=== PATIENT | male | born 1950 | race African-American/Black ===

== ENCOUNTER 2016-08-28 06:57 | Outpatient (CLI) | payer MEDICARE, MEDICAID ==
[~2016-08-28] VITALS: Ht 162.6 cm; Wt 72.8 kg
[~2016-08-28 06:57] MED LIST: CARB100T PO; CARB200C7 PO; CRB200T PO; DCS100C PO; GLYC1TAB11 PO; LOSA50TA36 PO; RANI150T90 PO; TMSL.4C PO; VLS80C PO
--- OUTSIDE RECORDS SUMMARY | 2016-08-28 07:00 | XMS REPORT | Continuity of Care Document ---
Author Author [facility] Organization [facility] Address Unknown Phone Unavailable Care Team Providers Care Drum Printer Name Role Phone CiprianoTalia PCP [phone] Source Comments Some departments are not documenting in the electronic medical record. If you do not see the information that you expected, contact Release of Information in the Health Information Management department at [phone] for further assistance in locating additional records.[facility] Active Allergies and Adverse Reactions Allergen Noted Date Severity Reactions Comments Banana 06/20/2016 High SEIZURES Per his sister Arlyn pt is allergic to bananas which cause convulsions at night Current Medications Prescription Sig. Disp. Refills Start End Date Status Date losartan (COZAAR) 50 mg Take 50 mg by mouth Active tablet daily. carBAMazepine (TEGRETOL) Take 2 tablets by mouth Active 200 mg tablet in the morning and 1 tablet in the evening docusate (COLACE) 100 mg Take 200 mg by mouth at Active capsule bedtime daily. clarithromycin (BIAXIN) Take 1 Tab by mouth twice 25 Tab 0 06/25/20 Active 500 mg tablet daily. [address] Take 1 Tab by mouth twice 60 Tab 1 06/25/20 Active (PROTONIX) 40 mg tablet daily. 16 amoxicillin (AMOXIL) 500 Take 2 Caps by mouth 50 Cap 0 06/25/20 Active mg capsule twice daily. 16 Active Problems Problem Noted Date H pylori ulcer 06/25/2016 Duodenal ulcer 06/20/2016 Most Recent Encounters Date Type Specialty Providers Description 09/12/2016 [facility] Gilmar Kapadia MD Gastric ulcer Encounter 07/04/2016 Telephone Gastroenterology Keena Ashley Appointment Request - EGD - [facility] 07/03/2016 Prep for Case Gastroenterology Gilmar Kapadia MD 07/03/2016 Telephone Gastroenterology Gilmar Kapadia MD Other - Repeat EGD 07/01/2016 Surgery Endoscopy, Physician Canceled ESOPHAGOGASTRODUODENOSCOP Y 07/01/2016 Hospital Endoscopy, Physician Gastric ulcer Encounter 06/24/2016 Prep for Case Rajan Bauer MD 06/20/2016 Hospital Radiology Wilfredo Stinson MD Encounter 06/20/2016 [facility] Chari Coelho MD Duodenal ulcer - Encounter 06/25/2016 06/20/2016 Endo [facility] General Internal Medicine Chari Coelho MD 06/20/2016 Anesthesia Costa Dela Cruz MD Event 06/20/2016 Surgery Gilmar Kapadia MD ESOPHAGOGASTRODUODENOSCOP Y Social History Tobacco Use Types Packs/Day Years Used Date Unknown If Ever Smoked Last Filed Vital Signs Vital Sign Reading Time Taken Blood Pressure 111/65 06/25/2016 10:54 AM CDT Pulse 100 06/25/2016 10:54 AM CDT Temperature 36.8 C (98.2 F) 06/25/2016 10:54 AM CDT Respiratory Rate - - Height - - Weight 77.384 kg (170 lb 9.6 oz) 06/25/2016 3:51 AM CDT Body Mass Index - - Oxygen Saturation 96% 06/25/2016 10:54 AM CDT Plan of Care Date Type Specialty Providers Description 09/12/2016 Surgery Gilmar Kapadia MD ESOPHAGOGASTRODUODENOSCOP [address] [place] [address] [phone] (Fax) Health Maintenance Due Date Last Done Comments Hepatitis C Screening 1950 Physical (Comprehensive) 1955 Exam Pertussis Vaccine 1959 Tetanus Vaccine 1965 Colorectal Cancer 1998 Screening Shingles Vaccine 2008 Prevnar/Pneumovax (#1) 2013 Influenza Vaccine 04/24/2016 Procedures from Last 3 Months Procedure Name Priority Date/Time Associated Diagnosis Comments PROCEDURES-SCAN 06/27/2016 Results for this 7:40 AM CDT procedure are in the results section. PROCEDURES-SCAN 06/27/2016 Results for this 7:39 AM CDT procedure are in the results section. CONSULT IV THERAPY TEAM Routine 06/21/2016 3:49 AM CDT ESOPHAGOGASTRODUODENOSCOP 06/20/2016 Esophageal perforation Y 4:53 PM CDT Results from Last 3 Months PROCEDURES-SCAN (06/27/2016 7:40 AM) Narrative Ordered by an unspecified provider. PROCEDURES-SCAN (06/27/2016 7:39 AM) Narrative Ordered by an unspecified provider. COMPREHENSIVE METABOLIC PANEL (06/25/2016 3:54 AM)Only the most recent of 3 results within the time period is included. Component Value Range Sodium 135 (L) 137-147 MMOL/L Potassium 4.3 3.5-5.1 MMOL/L Chloride 104 98-110 MMOL/L Glucose 90 70-100 MG/DL Blood Urea Nitrogen 14 7-25 MG/DL Creatinine 0.88 0.4-1.24 MG/DL Calcium 8.7 8.5-10.6 MG/DL Total Protein 6.6 6.0-8.0 G/DL Total Bilirubin 0.2 (L) 0.3-1.2 MG/DL Albumin 3.0 (L) 3.5-5.0 G/DL Alk Phosphatase 64 25-110 U/L AST (SGOT) 18 7-40 U/L CO2 25 21-30 MMOL/L ALT (SGPT) 16 7-56 U/L Anion Gap 6 3-12 eGFR Non >60Comment: >60 mL/min The eGFR is not validated for use in drug dosing adjustments. Continue to use estimated creatinine clearance per dosing reference text. Please contact the Clinical Pharmacist for questions. eGFR >60Comment: >60 mL/min The eGFR is not validated for use in drug dosing adjustments. Continue to use estimated creatinine clearance per dosing reference text. Please contact the Clinical Pharmacist for questions. Specimen Blood CBC AND DIFF (06/25/2016 3:54 AM)Only the most recent of 6 results within the time period is included. Component Value Range White Blood Cells 9.1 4.5-11.0 K/UL RBC 3.20 (L) 4.4-5.5 M/UL Hemoglobin 9.7 (L) 13.5-16.5 GM/DL Hematocrit 29.2 (L) 40-50 % MCV 91.2 80-100 FL MCH 30.2 26-34 PG MCHC 33.2 32.0-36.0 G/DL RDW 13.2 11-15 % Platelet Count 390 150-400 K/UL MPV 8.2 7-11 FL Neutrophils 60 41-77 % Lymphocytes 29 24-44 % Monocytes 7 4-12 % Eosinophils 4 0-5 % Basophils 0 0-2 % Absolute Neutrophil Count 5.50 1.8-7.0 K/UL Absolute Lymph Count 2.60 1.0-4.8 K/UL Absolute Monocyte Count 0.60 0-0.80 K/UL Absolute Eosinophil Count 0.40 0-0.45 K/UL Absolute Basophil Count 0.00 0-0.20 K/UL Specimen Blood POC GLUCOSE (06/22/2016 5:38 AM) Component Value Range Glucose, POC 93 70-100 MG/DL BASIC METABOLIC PANEL (06/22/2016 3:52 AM)Only the most recent of 3 results within the time period is included. Component Value Range Sodium 131 (L) 137-147 MMOL/L Potassium 3.3 (L) 3.5-5.1 MMOL/L Chloride 103 98-110 MMOL/L CO2 22 21-30 MMOL/L Anion Gap 6 3-12 Glucose 524 (HH)Comment: 70-100 MG/DL Critical Value GLU: Called To: HALLEY Schmitt at: 05:29:52 by: ASR Read back by: HALLEY Schmitt Blood Urea Nitrogen 5 (L) 7-25 MG/DL Creatinine 0.98 0.4-1.24 MG/DL Calcium 8.0 (L) 8.5-10.6 MG/DL eGFR Non >60Comment: >60 mL/min The eGFR is not validated for use in drug dosing adjustments. Continue to use estimated creatinine clearance per dosing reference text. Please contact the Clinical Pharmacist for questions. eGFR >60Comment: >60 mL/min The eGFR is not validated for use in drug dosing adjustments. Continue to use estimated creatinine clearance per dosing reference text. Please contact the Clinical Pharmacist for questions. Specimen Blood H. PYLORI AG, FECES (06/21/2016 8:04 AM) Component Value Range H. Pylori Ag, Feces Positive Reference range: Negative [facility] Specimen Sweat - Feces EGD (06/20/2016 7:53 PM) Component Value Range Provation Report Patient Name: Antonio Carias Procedure Date: 06/20/2016 7:53 PM CSN: [id number] Date of : 1950 Gender: Male Attending Physician: Gilmar Kapadia MD Procedure: Upper GI endoscopy Indications: Ep igastric abdominal pain, Abnormal CT of the GI tract with concern for esophageal perforation Providers: Gilmar Kapadia MD (Doctor), Karlie Kelly MD (Fellow), Lashonda Olivares (Nurse), Iron Vargas Inker Machine (Inker Machine) Referring Physician: Chari Coelho Medications: Mo nitored Anesthesia Care Complications: No immediate complications. Procedure: Pre-Anesthesia Assessment: - Prior to the procedure, a History and Physical was performed, and patient medications and allergies were reviewed. The patient's tolerance of previous anesthesia was also reviewed. The risks and benefits of the procedure and the sedation options and risks were discussed with the patient. All questions were answered, and informed consent was obtained. Prior Anticoagulants: The patient has taken no previous anticoagulant or antiplatelet agents. ASA Grade Assessment: II - A patient with mild systemic disease. After reviewing the risks and benefits, the patient was deemed in satisfactory condition to undergo the procedure. After obtaining informed consent, the endoscope was passed under direct vision. Throughout the procedure, the patient's blood pressure, pulse, and oxygen saturations were monitored continuously. The Endoscope [id number] was introduced through the mouth, and advanced to the second part of duodenum. The Endoscope was introduced through the mouth, and advanced to the second part of duodenum. The upper GI endoscopy was accomplished without difficulty. The patient tolerated the procedure well. Findings: Esophagogastric landmarks were identified: the Z-line was found at 30 cm from the incisors. The esophageal lumen was tortuous A 10 cm hiatus hernia was present (diaphragmatic pinch at 40 cm and the GE junction at 30 cm). A 4 cm, deep, cratered ulcer without bleeding or high risk bleeding stigmata was seen at the diaphragmatic pinch of the hiatal hernia (40 cm) with heaping and edematous folds around the ulcer with concern for malignancy based on endoscopic appearance. Biopsies were taken with a cold forceps for histology. The exam of the stomach was otherwise normal. Many non-bleeding superficial duodenal ulcers with no stigmata of bleeding were found in the duodenal bulb and in the first part of the duodenum. Impression: - Esophagogastric landmarks identified. - A 4 cm, deep, cratered ulcer without bleeding or high risk bleeding stigmata was seen at the diaphragmatic pinch of the hiatal hernia (40 cm) with heaping and edematous folds around the ulcer. Biopsies were taken with a cold forceps for histology. - 10 cm hiatus hernia. - Multiple non-bleeding duodenal ulcers with no stigmata of bleeding. Estimated Blood Loss: Estimated blood loss: none. Recommendation: - Patient has a contact number available for emergencies. The signs and symptoms of potential delayed complications were discussed with the patient. Return to normal activities tomorrow. Written discharge instructions were provided to the patient. - Resume previous diet. - Continue present medications. - Await pathology results. Scope In: 8:12:28 PM Scope Out: 8:22:45 PM Total Procedure Duration Time 0 hours 10 minutes 17 seconds Procedure Code(s): --- Professional --- 78237, Esophagogastroduodenoscopy, flexible, transoral; with biopsy, single or multiple Diagnosis Code(s): --- Professional --- K44.9, Diaphragmatic hernia without obstruction or gangrene K26.9, Duodenal ulcer, unspecified as acute or chronic, without hemorrhage or perforation R10.13, Epigastric pain R93.3, Abnormal findings on diagnostic imaging of other parts of digestive tract CPT copyright 2015 [employer] [place] [employer]. All rights reserved. The codes documented in this report are preliminary and upon industrial plant custodian review may be revised to meet current compliance requirements. Attending Participation: I personally performed the entire procedure. Gilmar Kapadia MD 07/25/2016 11:36:42 AM The attending physician has electronically signed and finalized this document. MD Karlie Dsouza MD 06/20/2016 8:29:45 PM Number of Addenda: 0 Note Initiated On: 06/20/2016 7:[address] ABDOMEN W CONTRAST (06/20/2016 2:32 PM) Impressions CHEST: 1. Complex hiatal hernia with marked wall thickening of the hiatal sac with surrounding inflammation. There is a small collection containing air and oral contrast along the anterior hernia at the gastroesophageal junction with adjacent inflammation, which may represent a contained perforation or contrast within inflamed old.. There is no evidence of active extravasation of contrast. 2. Small bilateral pleural effusions and mild compressive atelectasis. ABDOMEN: 1.Trace abdominal ascites. Findings discussed with Dr. Larkin at 3:30 PM 06/20/2016. Approved by Mariusz Melendrez M.D. on 06/20/2016 3:58 PM By my electronic signature, I attest that I have personally reviewed the images for this examination and formulated the interpretations and opinions expressed in this report Finalized by Sharon Du M.D. on 06/20/2016 4:29 PM. Dictated by Mariusz Melendrez M.D. on 06/20/2016 3:[address] CHEST AND ABDOMEN Clinical Indication:Male, 65 years old. Uncontrolled vomiting with concern for esophageal perforation at outside institution. Technique: Multiple contiguous axial images were obtained through the chest and abdomen following the administration of IV contrast material. Post processing coronal and sagittal reconstruction images were made from the axial images. IV contrast: Isovue 370. Bowel contrast:Gastrografin Comparison: Esophagram performed earlier the same day, CT abdomen/pelvis June 19, 2016 CHEST FINDINGS: Lower neck: Unremarkable. Axilla, Mediastinum and Марина: No axillary, mediastinal or hilar adenopathy. Large complex hiatal hernia which contains oral contrast. Diffuse wall thickening of the hiatal sac. There is an anterior air and fluid collection at the level of the gastroesophageal junction that with surrounding inflammation ( series 2 image 43). Evaluation of the gastric wall dislocation is difficult. No martin extravasation of contrast. Significant surrounding fat stranding about the gastroesophageal junction, proximal stomach and hiatal sac. Heart and Great Vessels: Unremarkable. Airway, Lungs and Pleura: Small bilateral pleural effusions with mild compressive atelectasis. No pulmonary nodule or focal consolidation. Chest Wall and Osseous Structures: No destructive osseous lesion. ABDOMEN FINDINGS: Liver and Biliary system: Normal sized liver with a few scattered hypodense lesions which are too small to characterize. Spleen: Unremarkable. Adrenal Glands and Kidneys: Mild nonspecific thickening of the left adrenal gland. Otherwise, the adrenal glands and kidneys are unremarkable. Pancreas and Retroperitoneum: Unremarkable pancreas. No retroperitoneal adenopathy. Aorta and Major Vessels: Unremarkable. Bowel, Mesentery and Peritoneal space: Normal caliber visualized large and small bowel. Trace ascites. Abdominal wall and Osseous Structures: No destructive osseous lesion. Procedure Note Interface, Radiant Results - ThuJun 20, 2016 4:[address] CHEST AND ABDOMEN Clinical Indication: Male, 65 years old. Uncontrolled vomiting with concern for esophageal perforation at outside institution. Technique: Multiple contiguous axial images were obtained through the chest and abdomen following the administration of IV contrast material. Post processing coronal and sagittal reconstruction images were made from the axial images. IV contrast: Isovue 370. Bowel contrast: Gastrografin Comparison: Esophagram performed earlier the same day, CT abdomen/pelvis June 19, 2016 CHEST FINDINGS: Lower neck: Unremarkable. Axilla, Mediastinum and Марина: No axillary, mediastinal or hilar adenopathy. Large complex hiatal hernia which contains oral contrast. Diffuse wall thickening of the hiatal sac. There is an anterior air and fluid collection at the level of the gastroesophageal junction that with surrounding inflammation ( series 2 image 43). Evaluation of the gastric wall dislocation is difficult. No martin extravasation of contrast. Significant surrounding fat stranding about the gastroesophageal junction, proximal stomach and hiatal sac. Heart and Great Vessels: Unremarkable. Airway, Lungs and Pleura: Small bilateral pleural effusions with mild compressive atelectasis. No pulmonary nodule or focal consolidation. Chest Wall and Osseous Structures: No destructive osseous lesion. ABDOMEN FINDINGS: Liver and Biliary system: Normal sized liver with a few scattered hypodense lesions which are too small to characterize. Spleen: Unremarkable. Adrenal Glands and Kidneys: Mild nonspecific thickening of the left adrenal gland. Otherwise, the adrenal glands and kidneys are unremarkable. Pancreas and Retroperitoneum: Unremarkable pancreas. No retroperitoneal adenopathy. Aorta and Major Vessels: Unremarkable. Bowel, Mesentery and Peritoneal space: Normal caliber visualized large and small bowel. Trace ascites. Abdominal wall and Osseous Structures: No destructive osseous lesion. IMPRESSION CHEST: 1. Complex hiatal hernia with marked wall thickening of the hiatal sac with surrounding inflammation. There is a small collection containing air and oral contrast along the anterior hernia at the gastroesophageal junction with adjacent inflammation, which may represent a contained perforation or contrast within inflamed old.. There is no evidence of active extravasation of contrast. 2. Small bilateral pleural effusions and mild compressive atelectasis. ABDOMEN: 1. Trace abdominal ascites. Findings discussed with Dr. Larkin at 3:30 PM 06/20/2016. Approved by Mariusz Melendrez M.D. on 06/20/2016 3:58 PM By my electronic signature, I attest that I have personally reviewed the images for this examination and formulated the interpretations and opinions expressed in this report Finalized by Sharon Du M.D. on 06/20/2016 4:29 PM. Dictated by Mariusz Melendrez M.D. on 06/20/2016 3:[address] CHEST W CONTRAST (06/20/2016 2:32 PM) Impressions CHEST: 1. Complex hiatal hernia with marked wall thickening of the hiatal sac with surrounding inflammation. There is a small collection containing air and oral contrast along the anterior hernia at the gastroesophageal junction with adjacent inflammation, which may represent a contained perforation or contrast within inflamed old.. There is no evidence of active extravasation of contrast. 2. Small bilateral pleural effusions and mild compressive atelectasis. ABDOMEN: 1.Trace abdominal ascites. Findings discussed with Dr. Larkin at 3:30 PM 06/20/2016. Approved by Mariusz Melendrez M.D. on 06/20/2016 3:58 PM By my electronic signature, I attest that I have personally reviewed the images for this examination and formulated the interpretations and opinions expressed in this report Finalized by Sharon Du M.D. on 06/20/2016 4:29 PM. Dictated by Mariusz Melendrez M.D. on 06/20/2016 3:[address] CHEST AND ABDOMEN Clinical Indication:Male, 65 years old. Uncontrolled vomiting with concern for esophageal perforation at outside institution. Technique: Multiple contiguous axial images were obtained through the chest and abdomen following the administration of IV contrast material. Post processing coronal and sagittal reconstruction images were made from the axial images. IV contrast: Isovue 370. Bowel contrast:Gastrografin Comparison: Esophagram performed earlier the same day, CT abdomen/pelvis June 19, 2016 CHEST FINDINGS: Lower neck: Unremarkable. Axilla, Mediastinum and Марина: No axillary, mediastinal or hilar adenopathy. Large complex hiatal hernia which contains oral contrast. Diffuse wall thickening of the hiatal sac. There is an anterior air and fluid collection at the level of the gastroesophageal junction that with surrounding inflammation ( series 2 image 43). Evaluation of the gastric wall dislocation is difficult. No martin extravasation of contrast. Significant surrounding fat stranding about the gastroesophageal junction, proximal stomach and hiatal sac. Heart and Great Vessels: Unremarkable. Airway, Lungs and Pleura: Small bilateral pleural effusions with mild compressive atelectasis. No pulmonary nodule or focal consolidation. Chest Wall and Osseous Structures: No destructive osseous lesion. ABDOMEN FINDINGS: Liver and Biliary system: Normal sized liver with a few scattered hypodense lesions which are too small to characterize. Spleen: Unremarkable. Adrenal Glands and Kidneys: Mild nonspecific thickening of the left adrenal gland. Otherwise, the adrenal glands and kidneys are unremarkable. Pancreas and Retroperitoneum: Unremarkable pancreas. No retroperitoneal adenopathy. Aorta and Major Vessels: Unremarkable. Bowel, Mesentery and Peritoneal space: Normal caliber visualized large and small bowel. Trace ascites. Abdominal wall and Osseous Structures: No destructive osseous lesion. Procedure Note Interface, Radiant Results - ThuJun 20, 2016 4:[address] CHEST AND ABDOMEN Clinical Indication: Male, 65 years old. Uncontrolled vomiting with concern for esophageal perforation at outside institution. Technique: Multiple contiguous axial images were obtained through the chest and abdomen following the administration of IV contrast material. Post processing coronal and sagittal reconstruction images were made from the axial images. IV contrast: Isovue 370. Bowel contrast: Gastrografin Comparison: Esophagram performed earlier the same day, CT abdomen/pelvis June 19, 2016 CHEST FINDINGS: Lower neck: Unremarkable. Axilla, Mediastinum and Марина: No axillary, mediastinal or hilar adenopathy. Large complex hiatal hernia which contains oral contrast. Diffuse wall thickening of the hiatal sac. There is an anterior air and fluid collection at the level of the gastroesophageal junction that with surrounding inflammation ( series 2 image 43). Evaluation of the gastric wall dislocation is difficult. No martin extravasation of contrast. Significant surrounding fat stranding about the gastroesophageal junction, proximal stomach and hiatal sac. Heart and Great Vessels: Unremarkable. Airway, Lungs and Pleura: Small bilateral pleural effusions with mild compressive atelectasis. No pulmonary nodule or focal consolidation. Chest Wall and Osseous Structures: No destructive osseous lesion. ABDOMEN FINDINGS: Liver and Biliary system: Normal sized liver with a few scattered hypodense lesions which are too small to characterize. Spleen: Unremarkable. Adrenal Glands and Kidneys: Mild nonspecific thickening of the left adrenal gland. Otherwise, the adrenal glands and kidneys are unremarkable. Pancreas and Retroperitoneum: Unremarkable pancreas. No retroperitoneal adenopathy. Aorta and Major Vessels: Unremarkable. Bowel, Mesentery and Peritoneal space: Normal caliber visualized large and small bowel. Trace ascites. Abdominal wall and Osseous Structures: No destructive osseous lesion. IMPRESSION CHEST: 1. Complex hiatal hernia with marked wall thickening of the hiatal sac with surrounding inflammation. There is a small collection containing air and oral contrast along the anterior hernia at the gastroesophageal junction with adjacent inflammation, which may represent a contained perforation or contrast within inflamed old.. There is no evidence of active extravasation of contrast. 2. Small bilateral pleural effusions and mild compressive atelectasis. ABDOMEN: 1. Trace abdominal ascites. Findings discussed with Dr. Larkin at 3:30 PM 06/20/2016. Approved by Mariusz Melendrez M.D. on 06/20/2016 3:58 PM By my electronic signature, I attest that I have personally reviewed the images for this examination and formulated the interpretations and opinions expressed in this report Finalized by Sharon Du M.D. on 06/20/2016 4:29 PM. Dictated by Mariusz Melendrez M.D. on 06/20/2016 3:27 PM. ESOPHAGRAM (06/20/2016 9:15 AM) Impressions 1. Moderate sized hiatal hernia without gross contrast extravasation. If there is further clinical concern for esophageal perforation, CT chest and abdomen with positive oral contrast is suggested. This was discussed with Dr. Stinson at 11:00 AM on June 20, 2016. Approved by Binh Singh M.D. on 06/20/2016 1:43 PM By my electronic signature, I attest that I have personally reviewed the images for this examination and formulated the interpretations and opinions expressed in this report Finalized by Sofie Acevedo M.D. on 06/20/2016 2:05 PM. Dictated by Binh Singh M.D. on 06/20/2016 1:14 PM. Narrative ESOPHAGRAM Clinical Indication:Male, 65 years old. Evaluate for esophageal perforation. Gastrografin study. Comparison: Outside CT exams dated February 05, 2012 and June 19, 2016. TECHNIQUE: An explanation of the exam was provided to the patient and brief history was obtained. After obtaining a preliminary radiograph, the patient ingested 100 mL Isovue to distend the esophageal lumen. Single-contrast spot films of the esophagus were obtained and esophageal motility was evaluated fluoroscopically. The patient tolerated the procedure well and left the department in stable condition. TOTAL FLUOROSCOPY TIME: 62 seconds FINDINGS: Evaluation was moderately limited secondary to patient limitations with patient positioning. There is mild dilatation and tortuosity of the esophagus. Tertiary contractions were noted during fluoroscopic evaluation. There is a moderate- sized hiatal hernia without gross extravasation of ingested contrast material. Procedure Note Interface, Radiant Results - ThuJun 20, 2016 2:08 PM CDT ESOPHAGRAM Clinical Indication: Male, 65 years old. Evaluate for esophageal perforation. Gastrografin study. Comparison: Outside CT exams dated February 05, 2012 and June 19, 2016. TECHNIQUE: An explanation of the exam was provided to the patient and brief history was obtained. After obtaining a preliminary radiograph, the patient ingested 100 mL Isovue to distend the esophageal lumen. Single-contrast spot films of the esophagus were obtained and esophageal motility was evaluated fluoroscopically. The patient tolerated the procedure well and left the department in stable condition. TOTAL FLUOROSCOPY TIME: 62 seconds FINDINGS: Evaluation was moderately limited secondary to patient limitations with patient positioning. There is mild dilatation and tortuosity of the esophagus. Tertiary contractions were noted during fluoroscopic evaluation. There is a moderate- sized hiatal hernia without gross extravasation of ingested contrast material. IMPRESSION 1. Moderate sized hiatal hernia without gross contrast extravasation. If there is further clinical concern for esophageal perforation, CT chest and abdomen with positive oral contrast is suggested. This was discussed with Dr. Stinson at 11:00 AM on June 20, 2016. Approved by Binh Singh M.D. on 06/20/2016 1:43 PM By my electronic signature, I attest that I have personally reviewed the images for this examination and formulated the interpretations and opinions expressed in this report Finalized by Sofie Acevedo M.D. on 06/20/2016 2:05 PM. Dictated by Binh Singh M.D. on 06/20/2016 1:14 PM. CHEST SINGLE VIEW (06/20/2016 8:25 AM) Impressions 1. Low lung volumes and mild bibasilar atelectasis. 2. Moderate sized hiatal hernia. Approved by Dominic Neely M.D. on 06/20/2016 10:50 AM By my electronic signature, I attest that I have personally reviewed the images for this examination and formulated the interpretations and opinions expressed in this report Finalized by Sumeet Alvarado M.D. on 06/20/2016 12:49 PM. Dictated by Dominic Neely M.D. on 06/20/2016 9:45 AM. Narrative CHEST SINGLE VIEW Indication: esophageal perforation Comparison: None. Findings: There are low lung volumes. The cardiac silhouette and pulmonary vasculature is within normal limits. There is mild patchy bibasilar atelectasis. The lungs are otherwise clear. No pneumothorax. Moderate hiatal hernia. Procedure Note Interface, Radiant Results - ThuJun 20, 2016 12:52 PM CDT CHEST SINGLE VIEW Indication: esophageal perforation Comparison: None. Findings: There are low lung volumes. The cardiac silhouette and pulmonary vasculature is within normal limits. There is mild patchy bibasilar atelectasis. The lungs are otherwise clear. No pneumothorax. Moderate hiatal hernia. IMPRESSION 1. Low lung volumes and mild bibasilar atelectasis. 2. Moderate sized hiatal hernia. Approved by Dominic Neely M.D. on 06/20/2016 10:50 AM By my electronic signature, I attest that I have personally reviewed the images for this examination and formulated the interpretations and opinions expressed in this report Finalized by Sumeet Alvarado M.D. on 06/20/2016 12:49 PM. Dictated by Dominic Neely M.D. on 06/20/2016 9:45 AM. SURGICAL PATHOLOGY (06/20/2016 5:53 AM) Component Value Range PATHOLOGY REPORT [facility] [email or web address] Remedios Schwab MD, PhD, Director of Anatomic Pathology Department of Pathology and Laboratory Medicine [address] [place] [id number] Surgical Pathology Office: [phone] SURGICAL PATHOLOGY REPORT NAME: CHARLEY MENON SURG PATH #: [id number] MR #: [id number] SPECIMEN CLASS: SR BILLING #: [id number] ALT ID #: LOCATION: 46 DATE OF PROCEDURE: 06/20/2016 AGE: 65 SEX: M DATE RECEIVED: 06/21/2016 : 1950 TIME RECEIVED: 05:53 PHYSICIAN: CHARI COELHO MD DATE OF REPORT: 06/24/2016 COPY TO: DATE OF PRINTIN06/24/2016 ################################################## ###################### Final Diagnosis: A. Gastric mucosa, "gastric ulcer", biopsy: H Pylori associated acute gastritis with ulceration, fibrinopurulent exudate and granulation tissue. Immunostain is positive for H. pylori. Negative for intestinal metaplasia. There is no evidence of malignancy. Attestation: By this signature, I attest that I have personally formulated the final interpretation expressed in this report and that the above diagnosis is based upon my examination of the slides and/or other material indicated in this report. +++Electronically Signed Out By+++ [facility]/06/22/2016 Interpreted by: Sheryl Canseco MD PhD, Attending Physician Lico Blanchard M.D. Resident 06/24/2016 ################################################## ###################### Material Received: A: gastric ulcer History: 65-year-old male with a clinical history of esophageal perforation. Gross Description: A. Received fresh labeled with the patient's name and "gastric ulcer" is a 1.0 x 0.5 x 0.2 cm aggregate of dotson soft tissue fragments. The specimen is submitted entirely in cassette A1. ([facility]) [facility]/06/21/2016 Nakia Petersen D.O. Resident If immunohistochemical stains and/or in situ hybridization are cited in this report, the performance characteristics were determined by the Department of Pathology and Laboratory Medicine of the [facility] ([employer]) in compliance with CLIA'88 regulations. Some of these tests rely on the use of "analyte specific reagents" and are subject to specific labeling requirements by the FDA. Known positive and negative control tissues demonstrate appropriate staining. This testing was developed by the Department of Pathology and Laboratory Medicine of the [facility]. It has not been cleared or approved by the FDA. The FDA has determined that such clearance or approval is not necessary. CULTURE-BLOOD W/SENSITIVITY (06/20/2016 5:50 AM) Component Value Range Battery Name BLOOD CULTURE Specimen Description BLOOD RIGHT WRIST Special Requests NONE Culture NO GROWTH 5 DAYS Report Status FINAL 06/26/[address] ABD/PEL EXTERNAL IMAGING (06/19/2016) Narrative This order has been auto finalized and does not contain a result.
[2016-08-28] MEDS ORDERED: OMEP20CA12 PO (15:34)
== END 2016-08-28 15:36 ==
LOC: PREOP 06:57
PROVIDERS: ATTEND Surgery
DX: Z01.818 Encounter for other preprocedural examination (principal)

== ENCOUNTER 2016-09-01 10:10 | Day surgery (SDC) | payer MEDICARE, MEDICAID ==
[~2016-09-01] VITALS: Ht 162.6 cm; Wt 72.8 kg
[~2016-09-01 10:10] MED LIST changes: +OMEP20CA12 PO
--- OUTSIDE RECORDS SUMMARY | 2016-09-01 10:14 | XMS REPORT | Continuity of Care Document ---
Author Author [facility] Organization [facility] Address Unknown Phone Unavailable Care Team Providers Care Vocational Rehabilitation Consultant Name Role Phone CiprianoTalia PCP [phone] Source Comments Some departments are not documenting in the electronic medical record. If you do not see the information that you expected, contact Release of Information in the Health Information Management department at [phone] for further assistance in locating additional records.[facility] Active Allergies and Adverse Reactions Allergen Noted [...] Encounters Date Type Specialty Providers Description 09/12/2016 [facility] Gilmar Kapadia MD Gastric ulcer Encounter 07/04/2016 Telephone Gastroenterology Keena Ashley Appointment Request - EGD - [facility] 07/03/2016 Prep for Case Gastroenterology Gilmar Kapadia MD 07/03/2016 Telephone Gastroenterology Gilmar Kapadia MD Other - Repeat EGD 07/01/2016 Surgery Endoscopy, Physician Canceled ESOPHAGOGASTRODUODENOSCOP Y 07/01/2016 Hospital Endoscopy, Physician Gastric ulcer Encounter 06/24/2016 Prep for Case Rajan Bauer MD 06/20/2016 Hospital Radiology Wilfredo Stinson MD Encounter 06/20/2016 [facility] Chari Coelho MD Duodenal ulcer - [...] ESOPHAGOGASTRODUODENOSCOP [address] [place] [address] [phone] (Fax) Health Maintenance Due Date Last Done [...] Carias Procedure Date: 06/20/2016 7:53 PM CSN: [id number] Date of : 1950 Gender: Male Attending Physician: Gilmar Kapadia MD Procedure: Upper GI endoscopy Indications: Ep igastric abdominal pain, Abnormal CT of the GI tract with concern for esophageal perforation Providers: Gilmar Kapadia MD (Doctor), Karlie Kelly MD (Fellow), Lashonda Olivares (Nurse), Iron Vargas Cloth Shrinker (Cloth Shrinker) Referring Physician: Chari Coelho Medications: Mo nitored [...] 17 seconds Procedure Code(s): --- Professional --- 55988, Esophagogastroduodenoscopy, flexible, transoral; with biopsy, single or multiple Diagnosis Code(s): --- Professional --- K44.9, Diaphragmatic hernia without obstruction or gangrene K26.9, Duodenal ulcer, unspecified as acute or chronic, without hemorrhage or perforation R10.13, Epigastric pain R93.3, Abnormal findings on diagnostic imaging of other parts of digestive tract CPT copyright 2015 [employer]. All rights reserved. The codes documented in this report are preliminary and upon invoice coder review may be revised to meet current [...] AM) Component Value Range PATHOLOGY REPORT [facility] [email or web address] Remedois Schwab MD, PhD, Director of Anatomic Pathology Department of Pathology and Laboratory Medicine [address] [place] [id number] Surgical Pathology Office: [phone] SURGICAL PATHOLOGY REPORT NAME: CHARLEY MENON SURG PATH #: [id number] MR #: [id number] SPECIMEN CLASS: SR BILLING #: [id number] ALT ID #: LOCATION: 46 DATE OF [...] in this report. +++Electronically Signed Out By+++ [facility]/06/22/2016 Interpreted by: Sheryl Canseco MD PhD, Attending [...] specimen is submitted entirely in cassette A1. ([facility]) [facility]/06/21/2016 Nakia Petersen D.O. Resident If immunohistochemical stains and/or in situ hybridization are cited in this report, the performance characteristics were determined by the Department of Pathology and Laboratory Medicine of the [facility] ([employer]) in compliance with CLIA'88 regulations. Some of these tests rely on the use of "analyte specific reagents" and are subject to specific labeling requirements by the FDA. Known positive and negative control tissues demonstrate appropriate staining. This testing was developed by the Department of Pathology and Laboratory Medicine of the [facility]. It has not been cleared or approved [...]
--- OUTSIDE RECORDS SUMMARY | 2016-09-01 10:16 | XMS REPORT | Continuity of Care Document ---
Author Author [facility] Organization [facility] Address Unknown Phone Unavailable Care Team Providers Care Home Health Care Provider Name Role Phone CiprianoTalia PCP [phone] Source Comments Some departments are not documenting in the electronic medical record. If you do not see the information that you expected, contact Release of Information in the Health Information Management department at [phone] for further assistance in locating additional records.[facility] Active Allergies and Adverse Reactions Allergen [...] Encounters Date Type Specialty Providers Description 09/12/2016 [facility] Gilmar Kapadia MD Gastric ulcer Encounter 07/04/2016 Telephone Gastroenterology Keena Ashley Appointment Request - EGD - [facility] 07/03/2016 Prep for Case Gastroenterology Gilmar Kapadia MD 07/03/2016 Telephone Gastroenterology Gilmar Kapadia MD Other - Repeat EGD 07/01/2016 Surgery Endoscopy, Physician Canceled ESOPHAGOGASTRODUODENOSCOP Y 07/01/2016 Hospital Endoscopy, Physician Gastric ulcer Encounter 06/24/2016 Prep for Case Rajan Bauer MD 06/20/2016 Hospital Radiology Wilfredo Stinson MD Encounter 06/20/2016 [facility] Chari Coelho MD Duodenal ulcer - Encounter [...] ESOPHAGOGASTRODUODENOSCOP [address] [place] [phone] (Fax) Health Maintenance Due Date Last Done [...] Carias Procedure Date: 06/20/2016 7:53 PM CSN: [id number] Date of : 1950 Gender: Male Attending Physician: Gilmar Kapaida MD Procedure: Upper GI endoscopy Indications: Ep igastric abdominal pain, Abnormal CT of the GI tract with concern for esophageal perforation Providers: Gilmar Kapadia MD (Doctor), Karlie Kelly MD (Fellow), Lashonda Olivares (Nurse), Iron Vargas Detailer (Detailer) Referring Physician: Chari Coelho Medications: Mo nitored [...] 17 seconds Procedure Code(s): --- Professional --- 03117, Esophagogastroduodenoscopy, flexible, transoral; with biopsy, single or multiple Diagnosis Code(s): --- Professional --- K44.9, Diaphragmatic hernia without obstruction or gangrene K26.9, Duodenal ulcer, unspecified as acute or chronic, without hemorrhage or perforation R10.13, Epigastric pain R93.3, Abnormal findings on diagnostic imaging of other parts of digestive tract CPT copyright 2015 [employer]. All rights reserved. The codes documented in this report are preliminary and upon company marker review may be revised to meet current [...] expressed in this report Finalized by Sumeet Alvraado M.D. on 06/20/2016 12:49 PM. Dictated by Dominic Neely M.D. on 06/20/2016 9:45 AM. SURGICAL PATHOLOGY (06/20/2016 5:53 AM) Component Value Range PATHOLOGY REPORT [facility] [email or web address] Remedios Schwab MD, PhD, Director of Anatomic Pathology Department of Pathology and Laboratory Medicine [address] [place] [id number] Surgical Pathology Office: [phone] SURGICAL PATHOLOGY REPORT NAME: CHARLEY MENON SURG PATH #: [id number] MR #: [id number] SPECIMEN CLASS: SR BILLING #: [id number] ALT ID #: LOCATION: 46 DATE OF [...] in this report. +++Electronically Signed Out By+++ [facility]/06/22/2016 Interpreted by: Sheryl Canseco MD PhD, Attending [...] specimen is submitted entirely in cassette A1. ([facility]) [facility]/06/21/2016 Nakia Petersen D.O. Resident If immunohistochemical stains and/or in situ hybridization are cited in this report, the performance characteristics were determined by the Department of Pathology and Laboratory Medicine of the [facility] ([employer]) in compliance with CLIA'88 regulations. Some of these tests rely on the use of "analyte specific reagents" and are subject to specific labeling requirements by the FDA. Known positive and negative control tissues demonstrate appropriate staining. This testing was developed by the Department of Pathology and Laboratory Medicine of the [facility]. It has not been cleared or [...]
[2016-09-01] MEDS ORDERED: NS IV 500 ML 500 ML ONE (10:18)
--- NOTE | 2016-09-01 10:24 | Pre-Op Note & Conscious Sedat ---
Pre-Operative Progress Note H&P Reviewed The H&P was reviewed, patient examined and no changes noted. Date H&P Reviewed: Sep 01, 2016 Time H&P Reviewed: 10:24 Pre-Op Diagnosis: peptic ulcers Conscious Sedation Pre-Proced ASA Class: 2 Airway Mallampati Classification: (belkofski appropriate class) I. II. III, IV Lungs Heart ASA score ASA 1: a normal healthy patient ASA 2: a patient with a mild systemic disease (mid diabetes, controlled hypertension, obesity ASA 3: a patient with a severe systemic disease that limits activity (angina , COPD, prior Myocardial infarction) ASA 4: a patient with an incapacitating disease that is a constant threat to life (CHF, renal failure) ASA 5: a moribund patient not expected to survive 24 hrs. (ruptured aneurysm) ASA 6: a declared brain patient whose organs are being harvested. For emergent operations, add the letter E after the classification Grade 2 Sedation Plan: Discussed options with patient/fam Note The patient is an appropriate candidate to undergo the planned procedure, sedation, and anesthesia. The patient immediately re-assessed prior to indication. HANG OSHEA MD Sep 01, 2016 10:24 am
[2016-09-01 10:45] VITALS: BP 148/96
[2016-09-01] MEDS ORDERED: NS IV 500 ML 500 ML IV PRN (10:45)
[2016-09-01] MEDS ORDERED: fentaNYL INJECTION 100 MCG/2 ML AMP ONE (11:01)
[2016-09-01] MEDS ORDERED: MIDAZOLAM 2 MG/2 ML (VERSED) VIAL ONE ×2 (11:01)
[2016-09-01] MEDS ORDERED: HURRICAINE EXT TUBE (BENZOCAINE) ONE (11:02)
[2016-09-01] MEDS ORDERED: fentaNYL INJECTION 100 MCG/2 ML AMP IVP PRN (11:30)
[2016-09-01] MEDS ORDERED: MIDAZOLAM 2 MG/2 ML (VERSED) VIAL IVP PRN (11:30)
[2016-09-01] MEDS ORDERED: FLUMAZENIL (ROMAZICON) 0.1 MG/ML 5 ML VIAL INJ PRN (11:30)
[2016-09-01] MEDS ORDERED: NALOXONE 0.4 MG/ML 1 ML (NARCAN) VIAL IVP PRN (11:30)
--- NOTE | 2016-09-01 11:43 | Progress Note-Post Operative ---
Post-Operative Progess Note Pre-Operative Diagnosis peptic ulcers Post-Operative Diagnosis long hiatal hernia with a [place] ulcer Post-Op Procedure Note Date of Procedure: Sep 01, 2016 Name of Procedure: EGD with biopsy of the gastric ulcer Anesthesia Type sedation Specimen(s) collected tissue from the edge of the gastric ulcer HANG OSHEA MD Sep 01, 2016 11:43 am
--- NOTE | 2016-09-01 11:46 | Discharge Inst-Simple/Standard ---
Discharge Inst-Standard Discharge Medications New, Converted or Re-Newed RX: Other Patient Instructions/Follow Up Plan of Care/Instructions/FU: to increase omeprazole to twice a day Activity as Tolerated: Yes Discharge Diet: No Restrictions HANG OSHEA MD Sep 01, 2016 11:46 am
[2016-09-01 12:00] VITALS: BP 113/68
[2016-09-01] MEDS ORDERED: HURRICAINE EXT TUBE (BENZOCAINE) XX ONE (12:00)
[2016-09-01 12:25] VITALS: BP 116/72
--- NOTE | 2016-09-01 12:26 | PROCEDURE REPORT ---
PROCEDURE PHYSICIAN: HANG OSHEA DATE OF PROCEDURE: 09/01/2016 PROCEDURE: Upper GI endoscopy with biopsy of gastric ulcer. SURGEON: Jose INDICATION FOR THE PROCEDURE: This gentleman was brought in for a follow-up upper endoscopy regarding previous gastric ulcers. Informed consent was obtained from his guardian. DESCRIPTION OF PROCEDURE: He was placed in left lateral decubitus position and his vital signs were monitored. Conscious sedation was achieved using Versed and fentanyl. The flexible gastroscope was introduced down the esophagus, past the stomach, into the proximal duodenum. FINDINGS: ESOPHAGUS: A long hiatal hernia with an ulcer on the gastric side of the hernia. It measured about 3 mm in size and had slough in the base, indicating chronicity. Photodocumentation and biopsy for H. pylori were obtained. The rest of the stomach and duodenum were normal. He tolerated the procedure well and was taken back to the nursing area in a stable condition. IMPRESSION: 1. Ulcer within the hiatal hernia (Bakari) 2. Helicobacter status pending. Job ID: [id number] Dictated Date: 09/01/2016 11:42:36 Molecular Biology Scientist Date: 09/01/2016 12:21:04 / linda MARTÍNEZ
[2016-09-01 12:29] VITALS: BP 116/72
== END 2016-09-01 12:38 | disposition home or self-care (01) ==
LOC: SDC 10:10
PROVIDERS: ATTEND Surgery
DX: K25.9 Gastric ulcer, unspecified as acute or chronic, without hemorrhage or perforation (principal); K44.9 Diaphragmatic hernia without obstruction or gangrene
CPT/HCPCS: 88305; 88342

== ENCOUNTER → 2021-06-21 | Outpatient (CLI) | payer MEDICARE, MEDICAID ==
[~2021-06-21] MED LIST changes: +CARB200C6 PO; -CARB200C7 PO; -LOSA50TA36 PO; +LOSA50TA63 PO; -OMEP20CA12 PO; +OMEP20CA18 PO
== END ==
LOC: CARD 11:00
PROVIDERS: ATTEND Internal Medicine Cardiovascular Disease
DX: I51.7 Cardiomegaly (principal); I44.7 Left bundle-branch block, unspecified
CPT/HCPCS: 93306

== ENCOUNTER → 2021-12-18 | Outpatient (CLI) | payer MEDICARE, MEDICAID ==
--- NOTE | 2021-12-18 17:58 | Diagnostic Imaging Report ---
PROCEDURE: US Renal Bilateral. TECHNIQUE: Multiple real-time grayscale images were obtained over the kidneys in various projections bilaterally. INDICATION: History of prostatic hyperplasia. COMPARISON: None. FINDINGS: Performing international guest coordinator reports technically challenging and limited exam due to limitations of patient cooperation. Otherwise, both kidneys are normal in size and echogenicity. The right kidney measures 9.5 cm in length and the left is 10.6 cm. The cortical thickness and the cortical medullary differentiation is well maintained. There is no evidence of calculi, focal mass or hydronephrosis. Limited views of the pelvis demonstrate mildly distended urinary bladder. No large intraluminal masses or calculi are present. Bilateral ureteral jets are identified. There is no ascites. IMPRESSION: Normal renal sonogram. Dictated by: Dictated on workstation # [id number]
== END ==
LOC: RAD 13:09
PROVIDERS: ATTEND Urology
DX: N40.0 Benign prostatic hyperplasia without lower urinary tract symptoms (principal)
CPT/HCPCS: 76770

== ENCOUNTER 2022-06-21 18:21 | Observation (INO) | payer MEDICARE, MEDICAID ==
[2022-06-21] VITALS (7 sets, daily range): BP systolic 107–149; BP diastolic 72–98
[~2022-06-21] VITALS: Ht 160 cm; Wt 83.3 kg
[2022-06-21] MEDS ORDERED: fentaNYL INJ 100 MCG/2 ML AMP IVP ONE (18:45)
[2022-06-21 18:49] LABS: BASOPHILS % (AUTO) 0 % (0-10); EOSINOPHILS # (AUTO) 0.1 10^3/uL (0.0-0.3); EOSINOPHILS % (AUTO) 1 % (0-10); HEMATOCRIT 39 % (40-54); HEMOGLOBIN 13.1 g/dL (13.3-17.7); LYMPHOCYTES # (AUTO) 3.5 10^3/uL (1.0-4.0); LYMPHOCYTES % (AUTO) 31 % (12-44); MEAN CORPUSCULAR HEMOGLOBIN 33 pg (25-34); MEAN CORPUSCULAR HGB CONC 34 g/dL (32-36); MEAN CORPUSCULAR VOLUME 97 fL (80-99); MEAN PLATELET VOLUME 9.8 fL (9.0-12.2); MONOCYTES # (AUTO) 2.2 10^3/uL (0.0-1.0); MONOCYTES % (AUTO) 20 % (0-12); NEUTROPHILS # (AUTO) 5.1 10^3/uL (1.8-7.8); NEUTROPHILS % (AUTO) 45 % (42-75); PLATELET COUNT 192 10^3/uL (130-400); WHITE BLOOD COUNT 11.3 10^3/uL (4.3-11.0)
--- NOTE | 2022-06-21 18:55 | ED General ---
General Chief Complaint: Upper Extremity Stated Complaint: CARDIAC Nursing Triage Note: PT BROUGHT IN BY [facility] FROM HOME WITH COMPLAINT OF BILATERAL UPPER ARM PAIN. EMS WAS CONCERNED BY 12 LEAD EKG. PT WAS VERY UPSET AND IN PAIN ON EMS ARRIVAL. EMS GAVE 25MCG FENTANYL. PT IS NON VERBAL Source of Information: Caregiver, EMS Exam Limitations: No Limitations History of Present Illness Date Seen by Provider: Jun 21, 2022 Time Seen by Provider: 18:30 Initial Comments 71-year-old male who is nonverbal with mental retardation presents to the emergency department today for apparent pain. Staff at the nursing facility state he was crying and pointing to his bilateral arms as the source of his p ain. This is highly abnormal for him. On arrival he points to the left shoulder as the source of the majority of his pain. He does appear to be painful when moved. He denies any anterior chest pain by nodding no. He does point to his right arm as a source of pain as well. No other history is able to be obtained. No known cardiac history. Allergies and Home Medications Allergies Coded Allergies: No Known Drug Allergies (Unverified , 05/13/12) Patient Home Medication List Home Medication List Reviewed: Yes Acetaminophen (Tylenol) 325 Mg Tablet, 1,000 MG PO Q6H, (Reported) Entered as Reported by: CAITIE URIAS on 06/22/22119 Last Action: Reviewed Atorvastatin Calcium (Atorvastatin Calcium) 40 Mg Tablet, 40 MG PO HS, (Repo rted) Entered as Reported by: CAITIE URIAS on 06/22/22107 Last Action: Reviewed Carbamazepine (Carbamazepine) 200 Mg Cpmp.12hr, 200 MG PO 1700, (Reported) Entered as Reported by: SYD NELSON on 06/20/16 022 Last Action: Reviewed Carbamazepine (Carbamazepine) 200 Mg Tablet, 400 MG PO DAILY, (Reported) Entered as Reported by: CAITIE URIAS on 06/22/22107 Last Action: Reviewed Carbamide Peroxide (Debrox) 6.5 % Drops, 15 ML OT BID, (Reported) Entered as Reported by: CAITIE URIAS on 06/22/22125 Last Action: Reviewed Carboxymethyl/Gly/Poly80/Pf (Refresh Optive Advanced Drops) 0.5 %-1 %-0.5 % Droperette, 1 EACH OP PRN, (Reported) Entered as Reported by: CAITIE URIAS on 06/22/22138 Last Action: Reviewed Cetirizine HCl (Cetirizine HCl) 10 Mg Tablet, 10 MG PO DAILY, (Reported) Entered as Reported by: CAITIE URIAS on 06/22/22107 Last Action: Reviewed Diphenhydramine HCl (Benadryl Allergy) 25 Mg Tablet, 25 MG PO Q4H PRN for ITCHING, (Reported) Entered as Reported by: CAITIE URIAS on 06/22/22111 Last Action: Reviewed Docusate Sodium (Colace) 100 Mg Capsule, 200 MG PO HS, (Reported) Entered as Reported by: JOSÉ MIGUEL MALCOLM on 05/13/121117 Last Action: Reviewed Ferrous Sulfate (Ferosul) 325 Mg (65 Mg Iron) Tablet, 325 MG PO DAILY, (Reported) Entered as Reported by: CAITIE URIAS on 06/22/22107 Last Action: Reviewed Fesoterodine Fumarate (Fesoterodine Fumarate ER) 4 Mg Tab.er.24h, 4 MG PO DAILY, (Reported) Entered as Reported by: CAITIE URIAS on 06/22/22107 Last Action: Reviewed Guaifenesin/Dextromethorphan (Robitussin Cough-Chest Dm Liq) 100 Mg-5 Mg/5 Ml Liquid, 20 ML PO Q4H PRN for COUGH, (Reported) Entered as Reported by: CAITIE URIAS on 06/22/22116 Last Action: Reviewed Hydrocortisone (Cortaid) 1 % Cream..g., 1 GM TP QID, (Reported) Entered as Reported by: CAITIE URIAS on 06/22/22120 Last Action: Reviewed Ibuprofen (Ibuprofen) 200 Mg Tablet, 200 MG PO Q6H, (Reported) Entered as Reported by: CAITIE URIAS on 06/22/22109 Last Action: Reviewed Losartan Potassium (Losartan Potassium) 50 Mg Tablet, 50 MG PO DAILY, (Reported) Entered as Reported by: SYD NELSON on 06/20/16 0228 Last Action: Reviewed Mag Hydrox/Aluminum Hyd/Simeth (Maalox Advanced Suspension) 200 Mg-200 Mg-20 Mg/5 Ml Oral.susp, 10 ML PO QID, (Reported) Entered as Reported by: CAITIE URIAS on 06/22/22111 Last Action: Reviewed Magnesium Hydroxide (Milk of Magnesia) 400 Mg/5 Ml Oral.susp, 30 ML PO HS PRN for CONSTIPATION-3RD LINE, (Reported) Entered as Reported by: CAITIE URIAS on 06/22/22113 Last Action: Reviewed Methyl Salicylate/Menthol (Icy Hot Stick) 30 %-10 % Stick...g., 1 GM TP QID, (Reported) Entered as Reported by: CAITIE URIAS on 06/22/22123 Last Action: Reviewed Neomycin/Bacitracin/Polymyxinb (Triple Antibiotic Ointment Pkt) 3.5 Mg-400 Unit- 5,000 Unit/Gram Oint.pack, 1 EACH TP TID, (Reported) Entered as Reported by: CAITIE URIAS on 06/22/22141 Last Action: Reviewed Omeprazole (Omeprazole) 20 Mg Capsule.dr, 20 MG PO BID, (Reported) Entered as Reported by: JOSÉ MIGUEL MALCOLM on 08/28/16 1534 Last Action: Reviewed Phenylephrine HCl (Sudafed PE) 10 Mg Tablet, 10 MG PO Q4H, (Reported) Entered as Reported by: CAITIE URIAS on 06/22/22118 Last Action: Reviewed Tamsulosin Hcl (Flomax) 0.4 Mg Cap, 0.4 MG PO DAILY, (Reported) Entered as Reported by: JOSÉ MIGUEL MALCOLM on 05/13/121117 Last Action: Reviewed Tolnaftate (Tinactin) 1 % Aero.powd, 1 GM TP BID, (Reported) Entered as Reported by: CAITIE URIAS on 06/22/22139 Last Action: Reviewed Discontinued Medications Carbamazepine (Tegretol) 200 Mg Tablet, 400 TAB PO DAILY, (Reported) Discontinued Reason: No Longer Taking Entered as Reported by: JOSÉ MIGUEL MALCOLM on 05/13/121117 Last Action: Discontinued Review of Systems Review of Systems Constitutional: other (Unable to obtain review of systems due to patient mental retardation, nonverbal status) Past Jekjfxj-Npipem-Kfkjga Hx Patient Social History Tobacco Use?: No Use of E-Cig and/or Vaping dev: No Substance use?: No Alcohol Use?: No Pt feels they are or have been: No Past Medical History Surgery/Hospitalization HX: All history obtained via records previously on file as patient is nonverbal Hypertension Seizure Disorder Prostate Family Medical History Reviewed Nursing Family Hx Diabetes mellitus G8 BROTHER G8 SISTER Hypertension G8 BROTHER G8 SISTER Diabetes, Hypertension Physical Exam Vital Signs Vital Signs - First Documented 06/21/22 18:22 Pulse 98 Resp 16 B/P (MAP) 149/98 (115) Pulse Ox 93 O2 Delivery Room Air Capillary Refill : Less Than 3 Seconds Height, Weight, BMI Height: 5'4.00" Weight: 160lbs. 8.0oz. 72.812608an; 26.00 BMI Method:Estimated General Appearance: No Apparent Distress, WD/WN HEENT: PERRL/EOMI, Normal ENT Inspection, Pharynx Normal Neck: Full Range of Motion, Normal Inspection, Non Tender, Supple Respiratory: Chest Non Tender, Lungs Clear, Normal Breath Sounds, No Accessory Muscle Use, No Respiratory Distress Cardiovascular: Regular Rate, Rhythm, No Edema, No Gallop, No JVD, No Murmur, Normal Peripheral Pulses Gastrointestinal: Normal Bowel Sounds, No Organomegaly, No Pulsatile Mass, Non Tender, Soft Back: Normal Inspection, No CVA Tenderness, No Vertebral Tenderness Extremity: Normal Capillary Refill, Normal Inspection, Other (Tenderness palpation left shoulder region. There does not appear to be pain with range of motion. Neurovascular motor and sensory intact. No obvious deformity. Unable to elicit pain on the right side. 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 Norm as Tested Skin: Normal Color, Warm/Dry Lymphatic: No Adenopathy Progress/Results/Core Measures Suspected Sepsis SIRS Temperature: Pulse: 98 Respiratory Rate: 16 Laboratory Tests 06/21/22 18:35: White Blood Count 11.3H Blood Pressure 149 /98 Mean: 115 Laboratory Tests 06/21/22 18:35: Creatinine 1.01, Platelet Count 192, Total Bilirubin 0.3 Results/Orders Lab Results Laboratory Tests Test 06/21/22 18:35 Range/Units White Blood Count 11.3 H 4.3-11.0 10^3/uL Red Blood Count 3.99 L 4.30-5.52 10^6/uL Hemoglobin 13.1 L 13.3-17.7 g/dL Hematocrit 39 L 40-54 % Mean Corpuscular Volume 97 80-99 fL Mean Corpuscular Hemoglobin 33 25-34 pg Mean Corpuscular Hemoglobin Concent 34 32-36 g/dL Red Cell Distribution Width 12.2 10.0-14.5 % Platelet Count 192 130-400 10^3/uL Mean Platelet Volume 9.8 9.0-12.2 fL Immature Granulocyte % (Auto) 3 % Neutrophils (%) (Auto) 45 42-75 % Lymphocytes (%) (Auto) 31 12-44 % Monocytes (%) (Auto) 20 H 0-12 % Eosinophils (%) (Auto) 1 0-10 % Basophils (%) (Auto) 0 0-10 % Neutrophils # (Auto) 5.1 1.8-7.8 10^3/uL Lymphocytes # (Auto) 3.5 1.0-4.0 10^3/uL Monocytes # (Auto) 2.2 H 0.0-1.0 10^3/uL Eosinophils # (Auto) 0.1 0.0-0.3 10^3/uL Basophils # (Auto) 0.0 0.0-0.1 10^3/uL Immature Granulocyte # (Auto) 0.3 H 0.0-0.1 10^3/uL Neutrophils % (Manual) 55 % Lymphocytes % (Manual) 29 % Monocytes % (Manual) 14 % Eosinophils % (Manual) 1 % Basophils % (Manual) 0 % Band Neutrophils 1 % Blood Morphology Comment NORMAL Sodium Level 132 L 135-145 MMOL/L Potassium Level 4.2 3.6-5.0 MMOL/L Chloride Level 102 98-107 MMOL/L Carbon Dioxide Level 22 21-32 MMOL/L Anion Gap 8 5-14 MMOL/L Blood Urea Nitrogen 14 7-18 MG/DL Creatinine 1.01 0.60-1.30 MG/DL Estimat Glomerular Filtration Rate 79 BUN/Creatinine Ratio 14 Glucose Level 114 H 70-105 MG/DL Calcium Level 9.1 8.5-10.1 MG/DL Corrected Calcium 9.1 8.5-10.1 MG/DL Total Bilirubin 0.3 0.1-1.0 MG/DL Aspartate Amino Transf (AST/SGOT) 31 5-34 U/L Alanine Aminotransferase (ALT/SGPT) 29 0-55 U/L Alkaline Phosphatase 65 40-136 U/L Troponin I 0.050 H <0.028 NG/ML Total Protein 7.9 6.4-8.2 GM/DL Albumin 4.0 3.2-4.5 GM/DL My Orders Orders - MAYELA ANTOINE DO Ekg Tracing (06/21/22 18:22) Comprehensive Metabolic Panel (06/21/22 18:41) Cbc With Automated Diff (06/21/22 18:41) Troponin I [place] (06/21/22 18:41) Chest 1 View, Ap/Pa Only (06/21/22 18:41) Shoulder, Left, 3 Views (06/21/22 18:41) Fentanyl Inj (Sublimaze Injection) (06/21/22 18:45) Manual Differential (06/21/22 18:35) Aspirin Chewable Tablet (Baby Aspirin Ch (06/21/22 19:45) Ed Admission (Communication) (06/21/22 19:46) Medications Given in ED Vital Signs/I&O 06/21/22 18:22 Pulse 98 Resp 16 B/P (MAP) 149/98 (115) Pulse Ox 93 O2 Delivery Room Air Capillary Refill : Less Than 3 Seconds Blood Pressure Mean: 115 ECG EKG : Comment Twelve-lead EKG shows sinus rhythm at 95 bpm. Left axis deviation with a left bundle branch block. No ST or T wave abnormalities. No ectopy. Diagnostic Imaging Diagonstic Imaging: Xray Plain Films/CT/US/NM/MRI: chest Comments Negative for any acute findings Departure Communication (Admissions) 1944: Trop slightly elevated. Has LBBB, similar to 2020. History is terribly difficult as the patient is nonverbal. Most of his pain seems to be coming from his left shoulder however he does have troponin is slightly elevated. I spoke with Dr. Ernandez, cardiology on-call. Spoke to Dr. Renee who accepts the patient in admission. Patient has been given aspirin. No EKG changes currently Impression Primary Impression: Chest pain Qualified Codes: R07.9 - Chest pain, unspecified Additional Impressions: Elevated troponin Left shoulder pain Qualified Codes: M25.512 - Pain in left shoulder Disposition: ADMITTED INPATIENT Condition: Stable Admissions Decision to Admit Reason: Admit from ER (General) Departure-Patient Inst. Referrals: PHOENIX VEGA DO (PCP) Primary Care Physician JOAQUIN GAINES (Family) Primary Care Physician MAYELA ANTOINE DO Jun 21, 2022 18:54
[2022-06-21 18:56] LABS: POTASSIUM 4.2 MMOL/L (3.6-5.0)
[2022-06-21 18:57] LABS: CALCIUM 9.1 MG/DL (8.5-10.1)
[2022-06-21 18:58] LABS: TOTAL PROTEIN 7.9 GM/DL (6.4-8.2)
[2022-06-21 19:00] LABS: BILIRUBIN,TOTAL 0.3 MG/DL (0.1-1.0)
[2022-06-21 19:01] LABS: BAND NEUTROPHILS 1 %; BASOPHILS % (MANUAL) 0 %; EOSINOPHILS % (MANUAL) 1 %; LYMPHOCYTES % (MANUAL) 29 %; MONOCYTES % (MANUAL) 14 %; NEUTROPHILS % (MANUAL) 55 %
[2022-06-21 19:02] LABS: CREATININE SERUM 1.01 MG/DL (0.60-1.30); RBC MORPH NORMAL
--- NOTE | 2022-06-21 19:16 | Diagnostic Imaging Report ---
INDICATION: Chest pain. COMPARISON: None. FINDINGS: Single frontal radiographic view of the chest was obtained and demonstrates mild cardiomegaly and pulmonary vascular congestion. There is also mild diffuse coarse prominence of the interstitium. Patchy alveolar bibasilar opacities are also noted. There is no large effusion or pneumothorax. Osseous structures show no gross acute abnormality. IMPRESSION: 1. Cardiomegaly with sequela of CHF including probable interstitial pulmonary edema. 2. Patchy bibasilar airspace opacities may be on the basis of superimposed atelectasis, although developing alveolar edema is also a consideration. Dictated by: Dictated on workstation # [id number]
--- NOTE | 2022-06-21 19:17 | Diagnostic Imaging Report ---
INDICATION: CP, L shoulder pain COMPARISON: None. FINDINGS: Three views of the left shoulder were obtained. There is no fracture, dislocation or other acute bony abnormality identified. The soft tissues appear unremarkable. No radiopaque foreign body is identified. The visualized portions of the left lung are clear. IMPRESSION: No acute fracture or dislocation of the left shoulder. Dictated by: Dictated on workstation # [id number]
[2022-06-21] MEDS ORDERED: ASPIRIN 81 MG CHEW (CHILDREN'S ASA) PO ONE (19:45)
[2022-06-21] MEDS ORDERED: DOCUSATE SODIUM 100 MG (COLACE) CAP PO SCH (21:00)
[2022-06-21] MEDS ORDERED: morphine IMMEDIATE RELEASE 15 MG TABLET PO PRN (21:00)
[2022-06-21] MEDS ORDERED: PATIENT MAY USE OWN MEDS, ALL PO SCH (21:00)
[2022-06-21] MEDS ORDERED: CALCIUM CARBONATE 500 MG (TUMS) TAB.CHEW PO PRN (21:00)
[2022-06-21] MEDS ORDERED: MILK OF MAGNESIA 400 MG/5 ML 30 ML UDC PO PRN (21:00)
[2022-06-21] MEDS ORDERED: ACETAMINOPHEN 325 MG TABLET PO PRN (21:00)
[2022-06-21] MEDS ORDERED: BISACODYL 10 MG SUPP (DULCOLAX) PR PRN (21:00)
[2022-06-21] MEDS ORDERED: ZIPRASIDONE 20 MG INJ (GEODON) VIAL IM PRN (21:00)
[2022-06-21] MEDS ORDERED: LACTULOSE SYRUP 10GM/15ML (ENULOSE) 30ML UDC PO PRN (21:00)
[2022-06-21] MEDS ORDERED: MELATONIN 3 MG TABLET PO PRN (21:00)
[2022-06-21] MEDS ORDERED: ONDANSETRON 4 MG/2 ML (SDV) Z0FRAN IV PRN (21:00)
[2022-06-21] MEDS ORDERED: cloNIDine 0.1 MG (CATAPRES) TAB PO PRN (21:00)
[2022-06-21] MEDS ORDERED: NITROGLYCERIN 0.4 MG SL TABS BTL 25'S SL PRN (21:00)
[2022-06-21] MEDS ORDERED: polyethylene glycoL POWDER 17 GM (MIRALAX) PACK PO PRN (21:00)
[2022-06-21] MEDS ORDERED: LORazepam 0.5 MG (ATIVAN) TABLET PO PRN (21:00)
[2022-06-21] MEDS ORDERED: diphenhydrAMINE 25 MG TAB (BENADRYL) PO PRN (21:00)
[2022-06-21] MEDS ORDERED: WATER (STERILE) FOR INJ 10 ML BTL INJ SCH (21:00)
[2022-06-21] MEDS ORDERED: diphenhydrAMINE 50 MG/ML INJ (BENADRYL) IVP PRN (21:00)
[2022-06-21] MEDS ORDERED: ONDANSETRON 4 MG/2 ML (SDV) Z0FRAN IVP PRN (21:00)
[2022-06-21] MEDS ORDERED: ANTACID SUSP 30 ML UDC (MYLANTA) PO PRN (21:00)
[2022-06-21] MEDS ORDERED: ONDANSETRON 4 MG (ZOFRAN) ORAL DISSOLVE TAB PO PRN (21:00)
[2022-06-21] MEDS ORDERED: LORazepam INJ 2 MG/ML (ATIVAN) VIAL IVP PRN (21:00)
[2022-06-21] MEDS ORDERED: morphine INJ 4 MG/ML 1 ML (VIAL/SYRINGE) IV PRN (21:00)
[2022-06-21] MEDS ORDERED: RT-ALBUTEROL SULF 2.5 MG/3 ML PRE-MIX VIAL INH PRN (22:00)
[2022-06-21] MEDS: carBAMazepine 200 MG (TEGretol) TAB PO SCH (22:40)
[2022-06-21] MEDS: SENNOSIDES 8.6 MG (SENOKOT) TAB PO SCH (22:41)
[2022-06-21] MEDS: PANTOPRAZOLE 40 MG (PROTONIX) TAB PO SCH (22:41)
[2022-06-21] MEDS: ENOXAPARIN 40 MG/0.4 ML (LOVENOX) SYR SC SCH (22:41)
[2022-06-21] MEDS: DOCUSATE SODIUM 100 MG (COLACE) CAP PO SCH (22:41)
[2022-06-22] VITALS (10 sets, daily range): BP systolic 104–140; BP diastolic 59–86
[2022-06-22] MEDS ORDERED: FERR325T24 PO (01:08)
[2022-06-22] MEDS ORDERED: ATOR40TA70 PO (01:08)
[2022-06-22] MEDS ORDERED: CARB200T6 PO (01:08)
[2022-06-22] MEDS ORDERED: FESO4TAB3 PO (01:08)
[2022-06-22] MEDS ORDERED: CETI10TA17 PO (01:08)
[2022-06-22] MEDS ORDERED: IBUP-2473 PO (01:10)
[2022-06-22] MEDS ORDERED: DIPH25TA65 PO (01:12)
[2022-06-22] MEDS ORDERED: MAG355OR16 PO (01:12)
[2022-06-22] MEDS ORDERED: MAGN400O7 PO (01:14)
[2022-06-22] MEDS ORDERED: GUAI237L82 PO (01:17)
[2022-06-22] MEDS ORDERED: PHEN-832 PO (01:19)
[2022-06-22] MEDS ORDERED: ACET325T38 PO (01:20)
[2022-06-22] MEDS ORDERED: HYDR42CR3 TP (01:21)
[2022-06-22] MEDS ORDERED: METH49ST TP (01:24)
[2022-06-22] MEDS ORDERED: CARB15DR87 OT (01:26)
[2022-06-22] MEDS ORDERED: CARB1DRO17 OU (01:39)
[2022-06-22] MEDS ORDERED: TOLN133A TP (01:40)
[2022-06-22] MEDS ORDERED: NEOM1OIN19 TP (01:42)
[2022-06-22] MEDS: PANTOPRAZOLE 40 MG (PROTONIX) TAB PO SCH ×2 (05:50→16:42)
[2022-06-22] MEDS: FERROUS SULF 325 MG (IRON) TAB PO SCH (05:50)
[2022-06-22 06:13] LABS: BASOPHILS % (AUTO) 0 % (0-10); EOSINOPHILS # (AUTO) 0.1 10^3/uL (0.0-0.3); EOSINOPHILS % (AUTO) 1 % (0-10); HEMATOCRIT 38 % (40-54); HEMOGLOBIN 12.7 g/dL (13.3-17.7); LYMPHOCYTES # (AUTO) 3.4 10^3/uL (1.0-4.0); LYMPHOCYTES % (AUTO) 32 % (12-44); MEAN CORPUSCULAR HEMOGLOBIN 33 pg (25-34); MEAN CORPUSCULAR HGB CONC 34 g/dL (32-36); MEAN CORPUSCULAR VOLUME 97 fL (80-99); MEAN PLATELET VOLUME 10.3 fL (9.0-12.2); MONOCYTES # (AUTO) 2.1 10^3/uL (0.0-1.0); MONOCYTES % (AUTO) 19 % (0-12); NEUTROPHILS # (AUTO) 4.9 10^3/uL (1.8-7.8); NEUTROPHILS % (AUTO) 46 % (42-75); PLATELET COUNT 183 10^3/uL (130-400); WHITE BLOOD COUNT 10.6 10^3/uL (4.3-11.0)
[2022-06-22 06:14] LABS: ALBUMIN 3.7 GM/DL (3.2-4.5)
--- NOTE | 2022-06-22 06:15 | History & Physical-Hospitalist ---
History of Present Illness HPI/Chief Complaint Chief complaint: Atypical chest pain HPI: This is a 71-year-old male with intellectual disability who presented to the ER with nonspecific and atypical chest pain. His troponin was barely elevated but given the fact it was difficult to ascertain details he was admitted for observation to rule out acute coronary syndrome. Currently he is sleeping soundly. Nurse has no concerns. Dr. Ernandez will see him in consult ation. Source: RN/MD, old records Exam Limitations: clinical condition, physical impairment Date Seen 06/22/22 Time Seen by a Provider: 11:30 Attending Physician Talia Cota DO PCP Admitting Physician: Cintia Renee DO Attending Physician: Cintia Renee DO Referring Physician Date of Admission Jun 21, 2022 at 19:48 Home Medications & Allergies Home Medications Reviewed patient Home Medication Reconciliation performed by pharmacy medication reconciliations scada technician and/or nursing. Patients Allergies have been reviewed. Allergies Allergies Coded Allergies No Known Drug Allergies (Unverified05/13/12) Past Iujthwt-Kyaeld-Jugdhk Hx Patient Social History Marrital Status: single Employed/Student: unemployed Tobacco Use?: No Smoking Status: Unknown if Ever Smoked Use of E-Cig and/or Vaping dev: No Substance use?: No Alcohol Use?: No Pt feels they are or have been: No Immunizations Up To Date Date of Influenza Vaccine: May 23, 2022 Tetanus Booster (TDap): Unknown Date of Pneumonia Vaccine: May 15, 2016 Current Status Advance Directives: No Communicates: Gestures, Points Primary Language: Sami Preferred Spoken Language: Sami Is interpretation needed?: No Implanted or Applied Medical D: None Past Medical History Hypertension Seizure Disorder Prostate Family Medical History Reviewed Nursing Family Hx Diabetes mellitus G8 BROTHER G8 SISTER Hypertension G8 BROTHER G8 SISTER Diabetes, Hypertension Review of Systems Constitutional: see HPI, malaise, weakness EENTM: no symptoms reported Respiratory: no symptoms reported Cardiovascular: chest pain Gastrointestinal: no symptoms reported Genitourinary: no symptoms reported Musculoskeletal: no symptoms reported Skin: no symptoms reported Psychiatric/Neurological: No Symptoms Reported All Other Systems Reviewed Negative Unless Noted: Yes Physical Exam Physical Exam Vital Signs Vital Signs - First Documented 06/21/22 06/21/22 06/21/22 06/22/22 18:22 21:00 21:58 09:24 Temp 37.0 Pulse 98 Resp 16 B/P (MAP) 149/98 (115) Pulse Ox 93 O2 Delivery Room Air O2 Flow Rate 0.00 FiO2 21 Capillary Refill : Less Than 3 Seconds Height, Weight, BMI Height: 5'4.00" Weight: 160lbs. 8.0oz. 72.103335hp; 32.53 BMI Method:Estimated General Appearance: No Apparent Distress, Chronically ill Eyes: Right Eye Normal Inspection, Right Eye PERRL HEENT: PERRL/EOMI, Normal ENT Inspection, Pharynx Normal, Moist Mucous Membranes Neck: Full Range of Motion, Normal Inspection, Non Tender Respiratory: Chest Non Tender, Lungs Clear, Normal Breath Sounds, No Accessory Muscle Use, No Respiratory Distress Cardiovascular: Regular Rate, Rhythm, No Edema, No Gallop, No JVD, No Murmur, Normal Peripheral Pulses Gastrointestinal: Normal Bowel Sounds, No Organomegaly, No Pulsatile Mass, Soft Back: Normal Inspection, No Vertebral Tenderness Extremity: Normal Capillary Refill, Normal Inspection, No Calf Tenderness, No Pedal Edema Neurologic/Psychiatric: Alert Skin: Normal Color, Warm/Dry Lymphatic: No Adenopathy Results Results/Procedures Labs Laboratory Tests 06/21/22 18:35 06/22/22 05:26 Patient resulted labs reviewed. Assessment/Plan Admission Diagnosis Assessment: Atypical chest pain Left bundle branch block chronic Elevated troponin Intellectual disability Seizure disorder GERD Hypertension Hyperlipidemia Plan: Rule out ACS Appreciate cardiology Admission Status: Observation Diagnosis/Problems Diagnosis/Problems (1) Chest pain Qualifiers: Chest pain type: unspecified Qualified Codes: R07.9 - Chest pain, unspecified (2) Left bundle branch block (3) Primary hypertension (4) Mixed hyperlipidemia CINTIA RENEE DO Jun 22, 2022 06:14
[2022-06-22 06:16] LABS: TOTAL PROTEIN 7.3 GM/DL (6.4-8.2)
[2022-06-22 06:18] LABS: BILIRUBIN,TOTAL 0.5 MG/DL (0.1-1.0)
[2022-06-22 06:20] LABS: CREATININE SERUM 0.88 MG/DL (0.60-1.30)
[2022-06-22 06:29] LABS: CARBAMAZEPINE (TEGRETOL) 9.1 UG/ML (4.0-12.0)
[2022-06-22] MEDS ORDERED: LOSARTAN 50 MG (COZAAR) TAB PO SCH (09:00)
[2022-06-22] MEDS: ASPIRIN E.C. 81 MG (ECOTRIN) TAB PO SCH (09:19)
[2022-06-22] MEDS: carBAMazepine 200 MG (TEGretol) TAB PO SCH ×2 (09:19→21:34)
[2022-06-22] MEDS: SENNOSIDES 8.6 MG (SENOKOT) TAB PO SCH ×2 (09:20→21:35)
[2022-06-22] MEDS: DOCUSATE SODIUM 100 MG (COLACE) CAP PO SCH ×2 (09:20→21:34)
--- NOTE | 2022-06-22 12:31 | Consultation-Cardiology ---
HPI-Cardiology Cardiology Consultation: Date of Consultation 06/22/22 Date of Admission 06/21/22 Attending Physician Talia Cota DO Admitting Physician Admitting Physician: Cintia Renee DO Attending Physician: Cintia Renee DO Consulting Physician JANIE GRISSOM JR, MD HPI: Time Seen by a Provider: 12:29 Chief Complaint: REASON FOR CONSULTATION: Left shoulder pain and abnormal troponin level. I had the pleasure of seeing Jv on the medical/surgical unit at [facility] in [place], [place] today. I actually met him in the office in 2020 but then he never came back for follow-up. He lives in a local nursing facility. He is mute. However, he does follow commands and can nod yes or no to some questions. I obtained the majority of the history from the ER physician who called me yesterday as well as the medical record and my previous notes from the office. According to the ER physician, yesterday the patient was motioning to the staff that his left shoulder appeared to hurt. They had him brought to the emergency room for further evaluation. He was found to have an elevated troponin level and then admitted to the hospital for further evaluation. When I saw him today, he nodded no when I asked him if his shoulder hurt. He nodded no when I asked him if he was short of breath or had chest pain. I am not able to obtain any other history from the patient due to his being nonverbal. Because of the shoulder pain and elevated troponin level, a cardiology consultation was requested. Certain portions of this document may have been dictated utilizing voice recognition technology. Inherent to this technology, typographical and grammatical errors may exist. As much as I am diligent to identify and correct these mistakes, some errors may remain in the document. Review of Systems-Cardiology Review of Systems Other comments Not obtainable due to the patient being nonverbal. [id number] Hx Patient Social History Have you traveled recently?: No Alcohol Use?: No Pt feels they are or have been: No Immunizations Up To Date Date of Pneumonia Vaccine: May 15, 2016 Date of Influenza Vaccine: May 23, 2022 Past Medical History PMH As described under Assessment. Family Medical History Family History: Diabetes mellitus G8 BROTHER G8 SISTER Hypertension G8 BROTHER G8 SISTER Allergies and Home Medications Allergies Coded Allergies: No Known Drug Allergies (Unverified , 05/13/12) Patient Home Medication List Home Medication List Reviewed: Yes Acetaminophen (Tylenol) 325 Mg Tablet, 1,000 MG PO Q6H, (Reported) Entered as Reported by: CAITIE URIAS on 06/22/22119 Last Action: Reviewed Atorvastatin Calcium (Atorvastatin Calcium) 40 Mg Tablet, 40 MG PO HS, (Reported) Entered as Reported by: CAITIE URIAS on 06/22/22107 Last Action: Reviewed Carbamazepine (Carbamazepine) 200 Mg Cpmp.12hr, 200 MG PO 1700, (Reported) Entered as Reported by: SYD NELSON on 06/20/16 0227 Last Action: Reviewed Carbamazepine (Carbamazepine) 200 Mg Tablet, 400 MG PO DAILY, (Reported) Entered as Reported by: CAITIE URIAS on 06/22/22107 Last Action: Reviewed Carbamide Peroxide (Debrox) 6.5 % Drops, 15 ML OT BID, (Reported) Entered as Reported by: CAITIE URIAS on 06/22/22125 Last Action: Reviewed Carboxymethyl/Gly/Poly80/Pf (Refresh Optive Advanced Drops) 0.5 %-1 %-0.5 % Droperette, 1 EACH OP PRN, (Reported) Entered as Reported by: CAITIE URIAS on 06/22/22138 Last Action: Reviewed Cetirizine HCl (Cetirizine HCl) 10 Mg Tablet, 10 MG PO DAILY, (Reported) Entered as Reported by: CAITIE URIAS on 06/22/22107 Last Action: Reviewed Diphenhydramine HCl (Benadryl Allergy) 25 Mg Tablet, 25 MG PO Q4H PRN for ITCHING, (Reported) Entered as Reported by: CAITIE URIAS on 06/22/22111 Last Action: Reviewed Docusate Sodium (Colace) 100 Mg Capsule, 200 MG PO HS, (Reported) Entered as Reported by: JOSÉ MIGUEL MALCOLM on 05/13/12 1118 Last Action: Reviewed Ferrous Sulfate (Ferosul) 325 Mg (65 Mg Iron) Tablet, 325 MG PO DAILY, (Reported) Entered as Reported by: CAITIE URIAS on 06/22/22107 Last Action: Reviewed Fesoterodine Fumarate (Fesoterodine Fumarate ER) 4 Mg Tab.er.24h, 4 MG PO DAILY, (Reported) Entered as Reported by: CAITIE URIAS on 06/22/22107 Last Action: Reviewed Guaifenesin/Dextromethorphan (Robitussin Cough-Chest Dm Liq) 100 Mg-5 Mg/5 Ml Liquid, 20 ML PO Q4H PRN for COUGH, (Reported) Entered as Reported by: CAITIE URIAS on 06/22/22116 Last Action: Reviewed Hydrocortisone (Cortaid) 1 % Cream..g., 1 GM TP QID, (Reported) Entered as Reported by: CAITIE URIAS on 06/22/22120 Last Action: Reviewed Ibuprofen (Ibuprofen) 200 Mg Tablet, 200 MG PO Q6H, (Reported) Entered as Reported by: CAITIE URIAS on 06/22/22109 Last Action: Reviewed Losartan Potassium (Losartan Potassium) 50 Mg Tablet, 50 MG PO DAILY, (Reported) Entered as Reported by: SYD NELSON on 06/20/16227 Last Action: Reviewed Mag Hydrox/Aluminum Hyd/Simeth (Maalox Advanced Suspension) 200 Mg-200 Mg-20 Mg/5 Ml Oral.susp, 10 ML PO QID, (Reported) Entered as Reported by: CAITIE URIAS on 06/22/22111 Last Action: Reviewed Magnesium Hydroxide (Milk of Magnesia) 400 Mg/5 Ml Oral.susp, 30 ML PO HS PRN for CONSTIPATION-3RD LINE, (Reported) Entered as Reported by: CAITIE URIAS on 06/22/22113 Last Action: Reviewed Methyl Salicylate/Menthol (Icy Hot Stick) 30 %-10 % Stick...g., 1 GM TP QID, (Reported) Entered as Reported by: CAITIE URIAS on 06/22/22123 Last Action: Reviewed Neomycin/Bacitracin/Polymyxinb (Triple Antibiotic Ointment Pkt) 3.5 Mg-400 Unit- 5,000 Unit/Gram Oint.pack, 1 EACH TP TID, (Reported) Entered as Reported by: CAITIE URIAS on 06/22/22141 Last Action: Reviewed Omeprazole (Omeprazole) 20 Mg Capsule.dr, 20 MG PO BID, (Reported) Entered as Reported by: JOSÉ MIGUEL MALCOLM on 08/28/16 1534 Last Action: Reviewed Phenylephrine HCl (Sudafed PE) 10 Mg Tablet, 10 MG PO Q4H, (Reported) Entered as Reported by: CAITIE URIAS on 06/22/22 0119 Last Action: Reviewed Tamsulosin Hcl (Flomax) 0.4 Mg Cap, 0.4 MG PO DAILY, (Reported) Entered as Reported by: JOSÉ MIGUEL MALCOLM on 05/13/12 1118 Last Action: Reviewed Tolnaftate (Tinactin) 1 % Aero.powd, 1 GM TP BID, (Reported) Entered as Reported by: CAITIE URIAS on 06/22/22 0140 Last Action: Reviewed Discontinued Medications Carbamazepine (Tegretol) 200 Mg Tablet, 400 TAB PO DAILY, (Reported) Discontinued Reason: No Longer Taking Entered as Reported by: JOSÉ MIGUEL MALCOLM on 05/13/12 111 Last Action: Discontinued Exam Vital Signs Vital Signs Date Time Temp Pulse Resp B/P (MAP) Pulse Ox O2 Delivery O2 Flow Rate FiO2 06/22/22 11:18 36.6 74 20 104/59 (74) 93 Room Air 06/22/22 09:29 21 06/22/22 09:24 0.00 Physical Exam General: Alert. No acute distress. Well nourished and appears stated age. Eye: Extraocular movements are intact. Conjunctivae are clear. There are no xanthelasma. HENT: Normocephalic. Atraumatic. Carotid pulsations 2/2 without bruits. Neck: Jugular venous pressure does not appear elevated. No thyromegaly appreciated. Respiratory: Lungs are clear to auscultation. Respirations are non-labored. Breath sounds are equal. Symmetrical chest wall expansion. Cardiovascular: Normal rate. Regular rhythm. No murmur. No gallop. Point of maximal impulse is not appear displaced. Good pulses equal in all extremities. No edema. Gastrointestinal: Soft. Normal bowel sounds. Skin: Skin turgor is normal. There is no pallor. Musculoskeletal: No kyphosis or scoliosis appreciated. Neurologic: Nonverbal but follows commands and nods yes or no to some questions. Cranial nerves 3-12 appear grossly intact. The patient has good motor tone strength in the upper and lower extremities bilaterally. Psychiatric: Cooperative. He appears to have an appropriate mood & affect. Labs Laboratory Tests Test 06/21/22 18:35 06/22/22 01:50 06/22/22 05:26 06/22/22 12:04 Range/Units White Blood Count 11.3 H 10.6 4.3-11.0 10^3/uL Red Blood Count 3.99 L 3.89 L 4.30-5.52 10^6/uL Hemoglobin 13.1 L 12.7 L 13.3-17.7 g/dL Hematocrit 39 L 38 L 40-54 % Mean Corpuscular Volume 97 97 80-99 fL Mean Corpuscular Hemoglobin 33 33 25-34 pg Mean Corpuscular Hemoglobin Concent 34 34 32-36 g/dL Red Cell Distribution Width 12.2 12.3 10.0-14.5 % Platelet Count 192 183 130-400 10^3/uL Mean Platelet Volume 9.8 10.3 9.0-12.2 fL Immature Granulocyte % (Auto) 3 3 % Neutrophils (%) (Auto) 45 46 42-75 % Lymphocytes (%) (Auto) 31 32 12-44 % Monocytes (%) (Auto) 20 H 19 H 0-12 % Eosinophils (%) (Auto) 1 1 0-10 % Basophils (%) (Auto) 0 0 0-10 % Neutrophils # (Auto) 5.1 4.9 1.8-7.8 10^3/uL Lymphocytes # (Auto) 3.5 3.4 1.0-4.0 10^3/uL Monocytes # (Auto) 2.2 H 2.1 H 0.0-1.0 10^3/uL Eosinophils # (Auto) 0.1 0.1 0.0-0.3 10^3/uL Basophils # (Auto) 0.0 0.0 0.0-0.1 10^3/uL Immature Granulocyte # (Auto) 0.3 H 0.3 H 0.0-0.1 10^3/uL Neutrophils % (Manual) 55 % Lymphocytes % (Manual) 29 % Monocytes % (Manual) 14 % Eosinophils % (Manual) 1 % Basophils % (Manual) 0 % Band Neutrophils 1 % Blood Morphology Comment NORMAL Sodium Level 132 L 134 L 135-145 MMOL/L Potassium Level 4.2 4.0 3.6-5.0 MMOL/L Chloride Level 102 103 98-107 MMOL/L Carbon Dioxide Level 22 23 21-32 MMOL/L Anion Gap 8 8 5-14 MMOL/L Blood Urea Nitrogen 14 12 7-18 MG/DL Creatinine 1.01 0.88 0.60-1.30 MG/DL Estimat Glomerular Filtration Rate 79 91 BUN/Creatinine Ratio 14 14 Glucose Level 114 H 110 H 70-105 MG/DL Calcium Level 9.1 9.0 8.5-10.1 MG/DL Corrected Calcium 9.1 9.2 8.5-10.1 MG/DL Total Bilirubin 0.3 0.5 0.1-1.0 MG/DL Aspartate Amino Transf (AST/SGOT) 31 27 5-34 U/L Alanine Aminotransferase (ALT/SGPT) 29 31 0-55 U/L Alkaline Phosphatase 65 65 40-136 U/L Troponin I 0.050 H 0.049 H 0.048 H <0.028 NG/ML Total Protein 7.9 7.3 6.4-8.2 GM/DL Albumin 4.0 3.7 3.2-4.5 GM/DL Triglycerides Level 43 <150 MG/DL Cholesterol Level 139 < 200 MG/DL LDL Cholesterol Direct 38 1-129 MG/DL VLDL Cholesterol 9 5-40 MG/DL HDL Cholesterol 74 H 40-60 MG/DL Carbamazepine (Tegretol) Level 9.1 4.0-12.0 UG/ML Radiology ECHOCARDIOGRAM (06/21/2021): 1. Normal left ventricular chamber size with moderate asymmetric hypertrophy. Paradoxical septal motion consistent with an intraventricular conduction delay. Normal left ventricular systolic function with an estimated ejection fraction of 55-60%. 2. Doppler parameters are consistent with grade 1 diastolic dysfunction. 3. The estimated pulmonary artery systolic pressure is 34 mmHg assuming a right atrial pressure of 5 mmHg. ECG Impression ECG Comment Sinus rhythm with left bundle branch block with anterolateral ST elevation which is chronic. Diagnosis/Problems Diagnosis/Problems (1) Left shoulder pain Status: Acute Assessment & Plan: Etiology unclear. He had an x-ray in the emergency room that did not show any acute abnormalities of the left shoulder. Today his shoulder pain seems to have subsided. Unclear whether or not the shoulder pain could be due to an acute coronary syndrome. The patient had a sister who was his DPOA but she recently . However, when I had spoken to the staff at the nursing facility in 2020, his sister had said she would only want him to have a stress test if absolutely necessary. (2) Elevated troponin Status: Acute Assessment & Plan: The troponin levels are marginally elevated but flat. He does not appear to have any reasons to have a type II non-ST elevation myocardial infarction or noncardiac elevation of the troponin level. This may represent a very small type I non-ST elevation myocardial infarction. However, since he now has no DPOA and he cannot communicate his wishes, I recommend that we continue medical therapy. He has been ordered for aspirin 81 mg daily. He is on a moderate dose of atorvastatin. I will add a low-dose metoprolol to t artrate. I will also obtain an echocardiogram in the morning. Since the troponin levels were flat and his shoulder pain seems to have subsided, I do not see any strong indication for intravenous heparin or therapeutic dosing of enoxaparin. (3) Left bundle branch block Assessment & Plan: This is a chronic problem for the patient and he has persistent ST elevation. This does not represent a STEMI. (4) Primary hypertension Assessment & Plan: I will decrease his dose of losartan so that we will have some blood pressure room to start a low-dose of beta-cira. (5) Mixed hyperlipidemia Assessment & Plan: His LDL level is under good control on the current home dose of atorvastatin which will be continued. Problem Qualifiers (1) Left shoulder pain: Chronicity: acute Qualified Codes: M25.512 - Pain in left shoulder JANIE GRISSOM JR, MD Jun 22, 2022 12:31
[2022-06-22] MEDS ORDERED: ENOXAPARIN 40 MG/0.4 ML (LOVENOX) SYR SC SCH (12:45)
[2022-06-22] MEDS ORDERED: TAMSULOSIN 0.4 MG (FLOMAX) CAP PO SCH (18:00)
[2022-06-22] MEDS: RT-ALBUTEROL SULF 2.5 MG/3 ML PRE-MIX VIAL INH SCH (20:38)
[2022-06-22] MEDS: meTOprolol TARTRATE 25 MG (LOPRESSOR) TABLET PO SCH (21:34)
[2022-06-22] MEDS: ENOXAPARIN 40 MG/0.4 ML (LOVENOX) SYR SC SCH (21:35)
[2022-06-23 03:56] VITALS: BP 120/74
[2022-06-23 05:48] LABS: BASOPHILS % (AUTO) 0 % (0-10); EOSINOPHILS # (AUTO) 0.1 10^3/uL (0.0-0.3); EOSINOPHILS % (AUTO) 1 % (0-10); HEMATOCRIT 38 % (40-54); HEMOGLOBIN 12.8 g/dL (13.3-17.7); LYMPHOCYTES # (AUTO) 3.2 10^3/uL (1.0-4.0); LYMPHOCYTES % (AUTO) 37 % (12-44); MEAN CORPUSCULAR HEMOGLOBIN 33 pg (25-34); MEAN CORPUSCULAR HGB CONC 34 g/dL (32-36); MEAN CORPUSCULAR VOLUME 97 fL (80-99); MEAN PLATELET VOLUME 10.3 fL (9.0-12.2); MONOCYTES # (AUTO) 1.5 10^3/uL (0.0-1.0); MONOCYTES % (AUTO) 17 % (0-12); NEUTROPHILS # (AUTO) 3.8 10^3/uL (1.8-7.8); NEUTROPHILS % (AUTO) 43 % (42-75); PLATELET COUNT 190 10^3/uL (130-400); WHITE BLOOD COUNT 8.7 10^3/uL (4.3-11.0)
[2022-06-23 05:55] LABS: ALBUMIN 3.7 GM/DL (3.2-4.5); POTASSIUM 4.1 MMOL/L (3.6-5.0)
[2022-06-23 05:57] LABS: CALCIUM 8.8 MG/DL (8.5-10.1)
[2022-06-23 05:58] LABS: TOTAL PROTEIN 7.6 GM/DL (6.4-8.2)
[2022-06-23 06:00] LABS: BILIRUBIN,TOTAL 0.4 MG/DL (0.1-1.0)
[2022-06-23 06:01] LABS: CREATININE SERUM 0.93 MG/DL (0.60-1.30)
[2022-06-23] MEDS: PANTOPRAZOLE 40 MG (PROTONIX) TAB PO SCH (06:29)
[2022-06-23] MEDS: FERROUS SULF 325 MG (IRON) TAB PO SCH (06:29)
[2022-06-23] MEDS: RT-ALBUTEROL SULF 2.5 MG/3 ML PRE-MIX VIAL INH SCH (07:25)
[2022-06-23 07:45] VITALS: BP 137/84
[2022-06-23] MEDS: ASPIRIN E.C. 81 MG (ECOTRIN) TAB PO SCH (08:31)
[2022-06-23] MEDS: meTOprolol TARTRATE 25 MG (LOPRESSOR) TABLET PO SCH (08:31)
[2022-06-23] MEDS: carBAMazepine 200 MG (TEGretol) TAB PO SCH (08:31)
[2022-06-23] MEDS: DOCUSATE SODIUM 100 MG (COLACE) CAP PO SCH (08:31)
[2022-06-23] MEDS: SENNOSIDES 8.6 MG (SENOKOT) TAB PO SCH (08:32)
[2022-06-23] MEDS ORDERED: LOSARTAN 25 MG (COZAAR) TAB PO SCH (09:00)
[2022-06-23] MEDS ORDERED: LOSARTAN 50 MG (COZAAR) TAB PO SCH (09:00)
[2022-06-23] MEDS ORDERED: EUCA1LOZ28 MM (09:09)
[2022-06-23] MEDS ORDERED: TMSL.4C PO (09:09)
[2022-06-23] MEDS ORDERED: DOCU-26 PO (09:09)
[2022-06-23] MEDS ORDERED: FESO4TAB PO (09:09)
[2022-06-23] MEDS ORDERED: ACET-2267 PO (09:09)
[2022-06-23] MEDS ORDERED: ASPI-1238 PO (09:47)
[2022-06-23] MEDS ORDERED: METO-333 PO (09:47)
--- NOTE | 2022-06-23 09:48 | Discharge Summary ---
Diagnosis/Chief Complaint Date of Admission Jun 21, 2022 at 19:48 Date of Discharge Discharge Date: Jun 23, 2022 Discharge Diagnosis Assessment: Atypical chest pain Left bundle branch block chronic Elevated troponin Intellectual disability Seizure disorder GERD Hypertension Hyperlipidemia Plan: Rule out ACS Appreciate cardiology Discharge Summary Discharge Physical Examination Allergies: Coded Allergies: No Known Drug Allergies (Unverified , 05/13/12) Vitals & I&Os Vital Signs Date Time Temp Pulse Resp B/P (MAP) Pulse Ox O2 Delivery O2 Flow Rate FiO2 06/23/22 11:43 06/23/22 11:30 36.7 77 16 90 Room Air 06/23/22 07:25 0.00 06/22/22 09:29 21 General Appearance: Alert Respiratory: Clear to Auscultation Cardiovascular: Regular Rate Hospital Course Was the Problem List Reviewed?: Yes Pt had an uneventful hospital course after he was admitted for atypical chest pain with slightly elevated troponin, which was consistent with repeats. No evidence of any acute coronary syndrome. He was placed on beta cira and aspirin. Conservative treatment was recommended. He was discharged. Labs (last 24 hrs) Laboratory Tests 06/21/22 18:35: White Blood Count 11.3H, Red Blood Count 3.99L, Hemoglobin 13.1L, Hematocrit 39L , Mean Corpuscular Volume 97, Mean Corpuscular Hemoglobin 33, Mean Corpuscular Hemoglobin Concent 34, Red Cell Distribution Width 12.2, Platelet Count 192, Mean Platelet Volume 9.8, Immature Granulocyte % (Auto) 3, Neutrophils (%) (Auto) 45, Lymphocytes (%) (Auto) 31, Monocytes (%) (Auto) 20H, Eosinophils (%) (Auto) 1, Basophils (%) (Auto) 0, Neutrophils # (Auto) 5.1, Lymphocytes # (Auto) 3.5, Monocytes # (Auto) 2.2H, Eosinophils # (Auto) 0.1, Basophils # (Auto) 0.0, Immature Granulocyte # (Auto) 0.3H, Neutrophils % (Manual) 55, Lymphocytes % (Manual) 29, Monocytes % (Manual) 14, Eosinophils % (Manual) 1, Basophils % (Manual) 0, Band Neutrophils 1, Blood Morphology Comment NORMAL, Sodium Level 132L, Potassium Level 4.2, Chloride Level 102, Carbon Dioxide Level 22, Anion Gap 8, Blood Urea Nitrogen 14, Creatinine 1.01, Estimat Glomerular Filtration Rate 79, BUN/Creatinine Ratio 14, Glucose Level 114H, Calcium Level 9.1, Corrected Calcium 9.1, Total Bilirubin 0.3, Aspartate Amino Transf (AST/SGOT) 31, Alanine Aminotransferase (ALT/SGPT) 29, Alkaline Phosphatase 65, Troponin I 0.050H, Total Protein 7.9, Albumin 4.0 06/22/22 01:50: Troponin I 0.049H 06/22/22 05:26: White Blood Count 10.6, Red Blood Count 3.89L, Hemoglobin 12.7L, Hematocrit 38L, Mean Corpuscular Volume 97, Mean Corpuscular Hemoglobin 33, Mean Corpuscular Hemoglobin Concent 34, Red Cell Distribution Width 12.3, Platelet Count 183, Mean Platelet Volume 10.3, Immature Granulocyte % (Auto) 3, Neutrophils (%) (Auto) 46, Lymphocytes (%) (Auto) 32, Monocytes (%) (Auto) 19H, Eosinophils (%) (Auto) 1, Basophils (%) (Auto) 0, Neutrophils # (Auto) 4.9, Lymphocytes # (Auto) 3.4, Monocytes # (Auto) 2.1H, Eosinophils # (Auto) 0.1, Basophils # (Auto) 0.0, Immature Granulocyte # (Auto) 0.3H, Sodium Level 134L, Potassium Level 4.0, Chloride Level 103, Carbon Dioxide Level 23, Anion Gap 8, Blood Urea Nitrogen 12, Creatinine 0.88, Estimat Glomerular Filtration Rate 91, BUN/Creatinine Ratio 14, Glucose Level 110H, Calcium Level 9.0, Corrected Calcium 9.2, Total Bilirubin 0.5, Aspartate Amino Transf (AST/SGOT) 27, Alanine Aminotransferase (ALT/SGPT) 31, Alkaline Phosphatase 65, Troponin I 0.048H, Total Protein 7.3, Albumin 3.7, Triglycerides Level 43, Cholesterol Level 139, LDL Cholesterol Direct 38, VLDL Cholesterol 9, HDL Cholesterol 74H, Carbamazepine (Tegretol) Level 9.1 06/22/22 12:04: Troponin I 0.044H 06/23/22 05:38: White Blood Count 8.7, Red Blood Count 3.91L, Hemoglobin 12.8L, Hematocrit 38L, Mean Corpuscular Volume 97, Mean Corpuscular Hemoglobin 33, Mean Corpuscular Hemoglobin Concent 34, Red Cell Distribution Width 12.2, Platelet Count 190, Mean Platelet Volume 10.3, Immature Granulocyte % (Auto) 2, Neutrophils (%) (Auto) 43, Lymphocytes (%) (Auto) 37, Monocytes (%) (Auto) 17H, Eosinophils (%) (Auto) 1, Basophils (%) (Auto) 0, Neutrophils # (Auto) 3.8, Lymphocytes # (Auto) 3.2, Monocytes # (Auto) 1.5H, Eosinophils # (Auto) 0.1, Basophils # (Auto) 0.0, Immature Granulocyte # (Auto) 0.2H, Sodium Level 132L, Potassium Level 4.1, Chloride Level 101, Carbon Dioxide Level 22, Anion Gap 9, Blood Urea Nitrogen 15, Creatinine 0.93, Estimat Glomerular Filtration Rate 87, BUN/Creatinine Ratio 16, Glucose Level 102, Calcium Level 8.8, Corrected Calcium 9.0, Total Bilirubin 0.4, Aspartate Amino Transf (AST/SGOT) 23, Alanine Aminotransferase (ALT/SGPT) 29, Alkaline Phosphatase 64, Troponin I 0.048H, Total Protein 7.6, Albumin 3.7 Pending Labs Laboratory Tests 06/21/22 18:35: White Blood Count 11.3, Red Blood Count 3.99, Hemoglobin 13.1, Hematocrit 39, Mean Corpuscular Volume 97, Mean Corpuscular Hemoglobin 33, Mean Corpuscular Hemoglobin Concent 34, Red Cell Distribution Width 12.2, Platelet Count 192, Mean Platelet Volume 9.8, Immature Granulocyte % (Auto) 3, Neutrophils (%) (Auto) 45, Lymphocytes (%) (Auto) 31, Monocytes (%) (Auto) 20, Eosinophils (%) (Auto) 1, Basophils (%) (Auto) 0, Neutrophils # (Auto) 5.1, Lymphocytes # (Auto) 3.5, Monocytes # (Auto) 2.2, Eosinophils # (Auto) 0.1, Basophils # (Auto) 0.0, Immature Granulocyte # (Auto) 0.3, Neutrophils % (Manual) 55, Lymphocytes % (Manual) 29, Monocytes % (Manual) 14, Eosinophils % (Manual) 1, Basophils % (Man ual) 0, Band Neutrophils 1, Blood Morphology Comment NORMAL, Sodium Level 132, Potassium Level 4.2, Chloride Level 102, Carbon Dioxide Level 22, Anion Gap 8, Blood Urea Nitrogen 14, Creatinine 1.01, Estimat Glomerular Filtration Rate 79, BUN/Creatinine Ratio 14, Glucose Level 114, Calcium Level 9.1, Corrected Calcium 9.1, Total Bilirubin 0.3, Aspartate Amino Transf (AST/SGOT) 31, Alanine Aminotransferase (ALT/SGPT) 29, Alkaline Phosphatase 65, Troponin I 0.050, Total Protein 7.9, Albumin 4.0 06/22/22 01:50: Troponin I 0.049 06/22/22 05:26: White Blood Count 10.6, Red Blood Count 3.89, Hemoglobin 12.7, Hematocrit 38, Mean Corpuscular Volume 97, Mean Corpuscular Hemoglobin 33, Mean Corpuscular Hemoglobin Concent 34, Red Cell Distribution Width 12.3, Platelet Count 183, Mean Platelet Volume 10.3, Immature Granulocyte % (Auto) 3, Neutrophils (%) (Auto) 46, Lymphocytes (%) (Auto) 32, Monocytes (%) (Auto) 19, Eosinophils (%) (Auto) 1, Basophils (%) (Auto) 0, Neutrophils # (Auto) 4.9, Lymphocytes # (Auto) 3.4, Monocytes # (Auto) 2.1, Eosinophils # (Auto) 0.1, Basophils # (Auto) 0.0, Immature Granulocyte # (Auto) 0.3, Sodium Level 134, Potassium Level 4.0, Chloride Level 103, Carbon Dioxide Level 23, Anion Gap 8, Blood Urea Nitrogen 12, Creatinine 0.88, Estimat Glomerular Filtration Rate 91, BUN/Creatinine Ratio 14, Glucose Level 110, Calcium Level 9.0, Corrected Calcium 9.2, Total Bilirubin 0.5, Aspartate Amino Transf (AST/SGOT) 27, Alanine Aminotransferase (ALT/SGPT) 31, Alkaline Phosphatase 65, Troponin I 0.048, Total Protein 7.3, Albumin 3.7, Triglycerides Level 43, Cholesterol Level 139, LDL Cholesterol Direct 38, VLDL Cholesterol 9, HDL Cholesterol 74, Carbamazepine (Tegretol) Level 9.1 06/22/22 12:04: Troponin I 0.044 06/23/22 05:38: White Blood Count 8.7, Red Blood Count 3.91, Hemoglobin 12.8, Hematocrit 38, Mean Corpuscular Volume 97, Mean Corpuscular Hemoglobin 33, Mean Corpuscular Hemoglobin Concent 34, Red Cell Distribution Width 12.2, Platelet Count 190, Mean Platelet Volume 10.3, Immature Granulocyte % (Auto) 2, Neutrophils (%) (Auto) 43, Lymphocytes (%) (Auto) 37, Monocytes (%) (Auto) 17, Eosinophils (%) (Auto) 1, Basophils (%) (Auto) 0, Neutrophils # (Auto) 3.8, Lymphocytes # (Auto) 3.2, Monocytes # (Auto) 1.5, Eosinophils # (Auto) 0.1, Basophils # (Auto) 0.0, Immature Granulocyte # (Auto) 0.2, Sodium Level 132, Potassium Level 4.1, Chloride Level 101, Carbon Dioxide Level 22, Anion Gap 9, Blood Urea Nitrogen 15, Creatinine 0.93, Estimat Glomerular Filtration Rate 87, BUN/Creatinine Ratio 16, Glucose Level 102, Calcium Level 8.8, Corrected Calcium 9.0, Total Bilirubin 0.4, Aspartate Amino Transf (AST/SGOT) 23, Alanine Aminotransferase (ALT/SGPT) 29, Alkaline Phosphatase 64, Troponin I 0.048, Total Protein 7.6, Albumin 3.7 Discharge Home Medications: Active Scripts Active Aspirin EC (Aspirin) 81 Mg Tablet.dr 81 Mg PO DAILY Metoprolol Tartrate 25 Mg Tablet 12.5 Mg PO BID Reported Stool Softener (Docusate Sodium) 100 Mg Capsule 200 Mg PO 0700 TAKES 2 (100MG) CAP Flomax (Tamsulosin HCl) 0.4 Mg Cap 0.8 Mg PO 1800 TAKES 2 (0.4MG) CAP Cough Drops (Eucalyptus/Menthol) 1 Each Lozenge 1 Each MM Q2H PRN Tylenol Extra Strength (Acetaminophen) 500 Mg Tablet 1,000 Mg PO Q6H PRN TAKES 2 (500MG) TAB Triple Antibiotic Ointment Pkt (Neomycin/Bacitracin/Polymyxinb) 3.5 Mg-400 Unit- 5,000 Unit/Gram Oint.pack 1 Applic TP TID PRN Tinactin (Tolnaftate) 1 % Aero.powd 1 Applic TP BID PRN Refresh Optive Advanced Drops (Carboxymethyl/Gly/Poly80/Pf) 0.5 %-1 %-0.5 % Droperette 1-2 Drops OU DAILY PRN Debrox (Carbamide Peroxide) 6.5 % Drops 5-10 Drops OT BID PRN Icy Hot Stick (Methyl Salicylate/Menthol) 30 %-10 % Stick...g. 1 Applic TP QID PRN Cortaid (Hydrocortisone) 1 % Cream..g. 1 Applic TP QID PRN Sudafed PE (Phenylephrine HCl) 10 Mg Tablet 10 Mg PO Q4H PRN Robitussin Cough-Chest Dm Liq (Guaifenesin/Dextromethorphan) 100 Mg-5 Mg/5 Ml Liquid 20 Ml PO Q4H PRN Milk of Magnesia (Magnesium Hydroxide) 400 Mg/5 Ml Oral.susp 30 Ml PO HS PRN Maalox Advanced Suspension (Mag Hydrox/Aluminum Hyd/Simeth) 200 Mg-200 Mg-20 Mg/5 Ml Oral.susp 10-20 Ml PO QID PRN Benadryl Allergy (Diphenhydramine HCl) 25 Mg Tablet 25-50 Mg PO Q4H PRN TAKES 1 TO 2 (25MG) TAB Ibuprofen 200 Mg Tablet 200-400 Mg PO Q4H PRN TAKES 1 TO 2 (200MG) TAB Fesoterodine Fumarate ER (Fesoterodine Fumarate) 4 Mg Tab.er.24h 4 Mg PO 1800 Ferosul (Ferrous Sulfate) 325 Mg (65 Mg Iron) Tablet 325 Mg PO 0700 Cetirizine HCl 10 Mg Tablet 10 Mg PO 0900 Carbamazepine 200 Mg Tablet 400 Mg PO 0700 TAKES 2 (200MG) TAB Atorvastatin Calcium 40 Mg Tablet 40 Mg PO 2000 Omeprazole 20 Mg Capsule.dr 20 Mg PO BID TAKES AT 0700 AND 2100 Losartan Potassium 50 Mg Tablet 50 Mg PO 0700 Carbamazepine 200 Mg Cpmp.12hr 200 Mg PO 1700 Instructions to patient/family Please see electronic discharge instructions given to patient. Diagnosis/Problems Diagnosis/Problems (1) Chest pain Qualifiers: Qualified Codes: R07.9 - Chest pain, unspecified (2) Left bundle branch block (3) Primary hypertension (4) Mixed hyperlipidemia DIONTE NGUYEN DO Jun 23, 2022 09:48
[2022-06-23 11:30] VITALS: BP 134/81
== END 2022-06-23 13:00 | disposition home or self-care (01) ==
LOC: ER 18:21 → EDUNIT# 18:21 → UNDOADMOB 19:48 → 4TH 19:48 → UNDODISOB 06-23 13:00
PROVIDERS: ADMIT Internal Medicine; ATTEND Internal Medicine
DX: R07.89 Other chest pain (principal); I44.7 Left bundle-branch block, unspecified; F79 Unspecified intellectual disabilities; G40.909 Epilepsy, unspecified, not intractable, without status epilepticus; K21.9 Gastro-esophageal reflux disease without esophagitis; E78.2 Mixed hyperlipidemia; I11.9 Hypertensive heart disease without heart failure; I35.8 Other nonrheumatic aortic valve disorders; Z79.82 Long term (current) use of aspirin; Z79.899 Other long term (current) drug therapy
CPT/HCPCS: 71045; 73030; 80053 ×3; 80061; 80156; 84484 ×3; 85007; 85025 ×2; 85027; 93005 ×3; 94640; 94760 ×2; 96372 ×2; 99283; C8929; G0378; 36415; 93306